=== PATIENT | male | born 1975 | race Caucasian/White ===

== ENCOUNTER → 2017-07-03 | Outpatient (REF) | payer OTHER ==
[2017-07-03 15:28] LABS: HEMATOCRIT 39.3 % (42.0-52.0); HEMOGLOBIN 12.9 g/dl (13.5-17.5); MEAN CORPUSCULAR HEMOGLOBIN 29.9 pg (27.0-33.0); MEAN CORPUSCULAR HGB CONC 32.8 g/dl (32.0-36.5); PLATELET COUNT, AUTOMATED 269 10^3/uL (150-450); RED BLOOD COUNT 4.32 10^6/uL (4.30-6.10); RED CELL DISTRIBUTION WIDTH 12.5 % (11.5-14.5); WHITE BLOOD COUNT 8.1 10^3/uL (4.0-10.0)
[2017-07-03 15:55] LABS: ESTIMATED AVERAGE GLUCOSE 103 MG/DL (60-110); HEMOGLOBIN A1c 5.2 %
[2017-07-03 16:00] LABS: ALBUMIN 4.4 GM/DL (3.2-5.2); ALBUMIN/GLOBULIN RATIO 1.57 (1.00-1.93); ALKALINE PHOSPHATASE 55 U/L (45-117); ALT/SGPT 28 U/L (12-78); ANION GAP 6 MEQ/L (8-16); AST/SGOT 19 U/L (7-37); BILIRUBIN,TOTAL 0.2 MG/DL (0.2-1.0); BLOOD UREA NITROGEN 15 MG/DL (7-18); C REACTIVE PROTEIN QUANTITATIV < 0.30 MG/DL (0.00-0.30); CALCIUM LEVEL 8.7 MG/DL (8.5-10.1); CARBON DIOXIDE LEVEL 29 MEQ/L (21-32); CHLORIDE LEVEL 103 MEQ/L (98-107); CREATININE FOR GFR 0.81 MG/DL (0.70-1.30); GLOMERULAR FILTRATION RATE > 60.0 (>60); GLUCOSE, FASTING 87 MG/DL (70-100); POTASSIUM SERUM 4.1 MEQ/L (3.5-5.1); PROSTATIC SPECIFIC AG MONITOR 0.77 NG/ML (< 4.0); SODIUM LEVEL 138 MEQ/L (136-145); THYROID STIMULATING HORMONE 0.444 uIU/ML (0.358-3.740); TOTAL PROTEIN 7.2 GM/DL (6.4-8.2)
[2017-07-03 16:18] LABS: TESTOSTERONE 148 NG/DL (241-827)
== END ==
LOC: M LABDRAW1 11:25
DX: I10 Essential (primary) hypertension (principal); E03.9 Hypothyroidism, unspecified
CPT/HCPCS: 84403

== ENCOUNTER → 2017-12-14 | Outpatient (CLI) | payer OTHER | LOC: M PLARAD 07:31 | DX: M51.06 Intervertebral disc disorders with myelopathy, lumbar region (principal) | CPT/HCPCS: 72148 ==

== ENCOUNTER → 2018-08-01 | Outpatient (CLI) | payer OTHER ==
[~2018-08-01] MED LIST: DICL50TAB PO; DULO30CA9 PO; HYDR-2807 PO; HYDR-3716 PO; LISI10TA4 PO; LISI20TA PO; OMEP20CA3 PO; SIMV40TA2 PO
[2018-08-01 09:59] LABS: HEMATOCRIT 42.7 % (42.0-52.0); HEMOGLOBIN 13.9 g/dl (13.5-17.5); MEAN CORPUSCULAR HEMOGLOBIN 29.6 pg (27.0-33.0); MEAN CORPUSCULAR HGB CONC 32.6 g/dl (32.0-36.5); PLATELET COUNT, AUTOMATED 324 10^3/uL (150-450); RED BLOOD COUNT 4.69 10^6/uL (4.30-6.10); WHITE BLOOD COUNT 7.5 10^3/uL (4.0-10.0)
[2018-08-01 10:22] LABS: HEMOGLOBIN A1c 5.1 %
[2018-08-01 10:33] LABS: ALBUMIN 4.4 GM/DL (3.2-5.2); ALT/SGPT 22 U/L (12-78); BILIRUBIN,TOTAL 0.6 MG/DL (0.2-1.0); BLOOD UREA NITROGEN 8 MG/DL (7-18); CALCIUM LEVEL 9.4 MG/DL (8.5-10.1); CARBON DIOXIDE LEVEL 30 MEQ/L (21-32); CHLORIDE LEVEL 105 MEQ/L (98-107); CHOLESTEROL LEVEL 188 MG/DL (<200); CHOLESTEROL RISK RATIO 3.916 (<5); CREATININE FOR GFR 0.78 MG/DL (0.70-1.30); GLOMERULAR FILTRATION RATE > 60.0 (>60); GLUCOSE, FASTING 88 MG/DL (70-100); HDL CHOLESTEROL 48 MG/DL (>40); LDL CHOLESTEROL 119 MG/DL (<100); NON-HDL-C 140 MG/DL; POTASSIUM SERUM 4.1 MEQ/L (3.5-5.1); SODIUM LEVEL 141 MEQ/L (136-145); TOTAL PROTEIN 7.2 GM/DL (6.4-8.2); TRIGLYCERIDES LEVEL 107 MG/DL (<150)
[2018-08-01 10:34] LABS: TESTOSTERONE 435 NG/DL (241-827)
== END ==
LOC: M LAB 08:54
PROVIDERS: ATTEND Family Medicine
DX: I10 Essential (primary) hypertension (principal); R53.83 Other fatigue; E03.9 Hypothyroidism, unspecified

== ENCOUNTER → 2018-08-13 | Outpatient (REF) ==
--- NOTE | 2018-08-13 15:56 | REP ---
PARTIAL LUMBAR SPINE, THREE VIEWS: HISTORY: Degenerative disc disease. There is no acute fracture or subluxation. The L4-5 and L5-S1 intervertebral discs are decreased in height consistent with disc degeneration. Osteophytes are present in L4 and L5. IMPRESSION: Degenerative change as described above. Electronically Signed by Lennox De La Fuente MD 08/13/2018 03:59 P
== END ==
LOC: M SMT 14:23
PROVIDERS: ATTEND Internal Medicine
DX: M51.36 Other intervertebral disc degeneration, lumbar region (principal)

== ENCOUNTER 2019-03-19 09:07 | Emergency (ER) | payer OTHER ==
[~2019-03-19] VITALS: Ht 182.9 cm; Wt 92.1 kg
[2019-03-19 09:07] VITALS: BP 180/91
[~2019-03-19 09:07] MED LIST changes: -LISI20TA PO; +LISI20TA19 PO; +OMEP-172 PO; -OMEP20CA3 PO; -SIMV40TA2 PO; +SIMV40TA20 PO
[2019-03-19] MEDS ORDERED: METH5TA (09:13)
[2019-03-19] MEDS ORDERED: AMPHET/DEXTR (09:13)
[2019-03-19] MEDS ORDERED: BUPR1SUB35 (09:13)
[2019-03-19] MEDS ORDERED: NS 1,000 ML IV ONE (09:45)
[2019-03-19] MEDS ORDERED: KETOROLAC 30 MG/ML VIAL (J1885) IV ONE (09:45)
[2019-03-19] MEDS ORDERED: ONDANSETRON 4MG/2ML VIAL (J2405) IV ONE (09:45)
[2019-03-19 09:56] LABS: BASO % 0.2 % (0.0-1.0); EOS % 0.1 % (0.0-3.0); HEMATOCRIT 42.9 % (42.0-52.0); HEMOGLOBIN 13.8 g/dl (13.5-17.5); LYMPH # 0.7 10^3/uL (1.5-5.0); LYMPH % 3.9 % (24.0-44.0); MEAN CORPUSCULAR HGB CONC 32.2 g/dl (32.0-36.5); MEAN CORPUSCULAR VOLUME 90.1 fl (80.0-96.0); MONO # 1.1 10^3/uL (0.0-0.8); MONO % 5.8 % (0.0-5.0); NEUTROPHILS # 16.8 10^3/uL (1.5-8.5); NEUTROPHILS % 89.6 % (36.0-66.0); PLATELET COUNT, AUTOMATED 383 10^3/uL (150-450); RED BLOOD COUNT 4.76 10^6/uL (4.30-6.10); WHITE BLOOD COUNT 18.8 10^3/uL (4.0-10.0)
[2019-03-19 10:23] LABS: ALBUMIN 3.6 GM/DL (3.2-5.2); BILIRUBIN,DIRECT 0.2 MG/DL (0.0-0.2); BILIRUBIN,TOTAL 0.6 MG/DL (0.2-1.0); TOTAL PROTEIN 7.7 GM/DL (6.4-8.2)
--- NOTE | 2019-03-19 11:12 | REP ---
Clinical: Right upper quadrant pain. Technique: Real time olson scale ultrasound examination using curved array transducer. Findings: Liver and pancreas are normal and without focal hepatic or pancreatic lesion identified. Right kidney is normal in reniform shape without hydronephrosis and measures 10.4 x 5.6 x 5.8 cm. The gallbladder is distended and filled with sludge and non mobile gallstone at the neck of the gallbladder along with significant wall thickening to 11 ml and pericholecystic fluid. The common bile duct measures 5.6 mm diameter. Findings are consistent with acute cholecystitis by ultrasound and should be correlated clinically. Impression: 1. Findings suggesting acute cholecystitis. Electronically Signed by Rudy Jackson MD 03/19/2019 11:04 A
[2019-03-19] MEDS ORDERED: CIPR-249 PO (11:32)
[2019-03-19] MEDS ORDERED: ONDA4TAB6 PO ×2 (11:32→21:05)
[2019-03-19] MEDS ORDERED: FLAG500T PO (11:32)
[2019-03-19] MEDS ORDERED: KETO10TAB PO ×2 (11:32→21:05)
--- NOTE | 2019-03-19 13:28 | ECGEPIP ---
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
[2019-03-19] MEDS ORDERED: METH5TA PO (21:05)
[2019-03-19] MEDS ORDERED: BUPR1SUB5 SL (21:05)
[2019-03-19] MEDS ORDERED: ADDE20TA PO (21:05)
[2019-03-19] MEDS ORDERED: METR-265 PO (21:05)
[2019-03-19] MEDS ORDERED: VITMTA PO (21:05)
[2019-03-19] MEDS ORDERED: CIPR500T3 PO (21:05)
== END 2019-03-19 12:05 | disposition home or self-care (01) ==
LOC: M ED 09:07
DX: K80.00 Calculus of gallbladder with acute cholecystitis without obstruction (principal); R00.1 Bradycardia, unspecified; I10 Essential (primary) hypertension; E78.5 Hyperlipidemia, unspecified; K21.9 Gastro-esophageal reflux disease without esophagitis; F15.10 Other stimulant abuse, uncomplicated; F12.10 Cannabis abuse, uncomplicated; Z79.899 Other long term (current) drug therapy
CPT/HCPCS: 76705; 80047; 80076; 81001; 83690; 85025; 93005; 96374; 96375; 99284; J1885; J2405

== ENCOUNTER 2019-03-19 20:11 | Inpatient (IN) | payer OTHER ==
[~2019-03-19] VITALS: Ht 182.9 cm; Wt 93.0 kg
[~2019-03-19 20:11] MED LIST changes: +AMPHET/DEXTR; +BUPR1SUB35; +CIPR-249 PO; +FLAG500T PO; +KETO10TAB PO; +METH5TA; +ONDA4TAB6 PO
[2019-03-19] MEDS ORDERED: MORPHINE 4 MG/ML 1ML VIAL/SYRINGE (J2270) IV ONE (20:45)
[2019-03-19] MEDS ORDERED: NS 1,000 ML IV ONE ×2 (20:45)
[2019-03-19] MEDS ORDERED: METOCLOPRAMIDE INJ 10MG/2ML VIAL (J2765) IV ONE (20:45)
[2019-03-19] MEDS ORDERED: D5W/0.9% SODIUM CHLORIDE 1,000 ML IV SCH (20:53)
--- NOTE | 2019-03-19 20:57 | HPEPDOC ---
[facility] Medical History & Physical Date of Admission Mar 19, 2019 Date of Service: Mar 20, 2019 Primary Care Physician: Yong Saba Attending Physician: JOSUE ROMERO MD History and Physical TIME OF SERVICE: 9:20 PM CHIEF COMPLAINT: Abdominal pain HISTORY OF PRESENT ILLNESS: This is a 43-year-old male who presented to the hospital earlier on today with complaints of acute worsening of his abdominal pain. The pain is on the right side, 10/10 in severity, sharp & constant; it began around [place] time and is associated with bilious, nonbloody emesis, fevers, and chills. The initial workup was workup was remarkable for leukocytosis, which was attributed to acute cholecystitis; Dr. Sanchez was consulted. The patient was sent home with antibiotics, and instructed to follow-up with Dr. Sanchez outpatient basis, but he returned to the hospital this evening because he was unable to eat or take his medications without vomiting. REVIEW OF SYSTEMS: 12 point review of systems negative except as listed in HPI PAST MEDICAL/ SURGICAL HISTORY: Chronic lower back pain/status post back surgery Hypertension, used to be on lisinopril but hasn't followed up with his PCP recently Dyslipidemia. GERD Status post excision of pilondal cyst SOCIAL HISTORY: Denies smoking Has a history of polysubstance abuse FAMILY HISTORY: Hypertension Gallstones ALLERGIES: Please see below. HOME MEDICATIONS: Please see below. PHYSICAL EXAMINATION: VITAL SIGNS: Please see below. GEN: well-nourished / well developed/ visibly in pain INTEGUMENT: not flushed/ not jaundice / no ecchymosis on the abdomen HEENT: NCAT / lips acyanotic /mucus membranes moist and pink / sclera anicteric CVS: RRR/NMRG/ trace extremity edema LUNGS: lungs are clear to auscultation bilaterally on room air ABDOMEN: Contour flat / there are no masses or lesions / bowel sounds are hypoactive/ the abdomen is tympanic on percussion MSK/EXTREMITIES: range of motion intact in all 4 extremities / he is able to walk without assistance NEURO: CN 2-12 are grossly intact / speech is not dysarthric PSYCH: alert and oriented to person place and time/ able to understand and follow all commands LABORATORY DATA: See below. IMAGING: Ultrasound of the gallbladder " Impression: 1. Findings suggesting acute cholecystitis." MICROBIOLOGY: Please see below. ASSESSMENT: Mr. Galeas is a 43-year-old with a past history of hypertension, chronic back pain who will be admitted for management of acute cholecystitis. PLAN: 1. Acute cholecystitis The only SIRS criteria has is leukocytosis Alkaline phosphatase is elevated Lipase is within normal limits Report from ultrasound of the gallbladder was reviewed Plan: Admit to medical floor/nothing by mouth/IV fluids/continue IV Cipro and Flagyl/pink, controlled morphine/general surgery consult/monitor vitals and WBC count 2. Uncontrolled hypertension Plan: Amlodipine DVT PROPHYLAXIS: SCDs DISPOSITION: Likely home after more than 2 midnight's stay Vital Signs Vital Signs Date Time Temp Pulse Resp B/P (MAP) Pulse Ox O2 Delivery O2 Flow Rate FiO2 03/19/19 20:19 03/19/19 20:12 98.6 71 16 98 Room Air Laboratory Data CBC/BMP Laboratory Tests 03/19/19 20:56 Home Medications Scheduled Buprenorphine HCl/Naloxone HCl (Buprenorphin-Naloxon 8-2 mg Sl) 1 Each Tab.subl, 1 TAB SL TID HAS NOT TAKEN SINCE RECENT ILLNESS Ciprofloxacin HCl (Ciprofloxacin HCl) 500 Mg Tablet, 500 MG PO BID Dextroamphetamine/Amphetamine (Adderall 20 mg Tablet) 20 Mg Tablet, 20 MG PO BID HAS NOT TAKEN SINCE RECENT ILLNESS Methadone HCl (Methadone HCl) 5 Mg Tablet, 5 MG PO TID HAS NOT TAKEN SINCE RECENT ILLNESS Metronidazole (Metronidazole) 500 Mg Tablet, 500 MG PO Q8H Multivitamins (Thera M Plus Tablet) 1 Each Tablet, 1 TAB PO DAILY Scheduled PRN Ketorolac Tromethamine (Ketorolac Tromethamine) 10 Mg Tablet, 10 MG PO Q6H PRN for PAIN Ondansetron (Ondansetron Odt) 4 Mg Tab.rapdis, 4 MG PO Q6H PRN for NAUSEA Allergies Coded Allergies: No Known Allergies (Unverified , 04/14/14) A-FIB/CHADSVASC A-FIB History Current/History of A-Fib/PAF?: No Current PO Anticoag Therapy: No JOSUE ROMERO MD Mar 19, 2019 20:57
[2019-03-19] MEDS ORDERED: KETOROLAC 30 MG/ML VIAL (J1885) IV ONE (21:00)
[2019-03-19] MEDS ORDERED: MAALOX 30 ML SUSP *UDC PO PRN (21:00)
[2019-03-19] MEDS ORDERED: MOM 30ML SUSPENSION UDC PO PRN (21:00)
[2019-03-19 21:03] LABS: BASO % 0.2 % (0.0-1.0); EOS % 0.2 % (0.0-3.0); HEMATOCRIT 40.2 % (42.0-52.0); LYMPH # 0.7 10^3/uL (1.5-5.0); LYMPH % 2.9 % (24.0-44.0); MEAN CORPUSCULAR HGB CONC 32.3 g/dl (32.0-36.5); MEAN CORPUSCULAR VOLUME 89.5 fl (80.0-96.0); MONO # 1.9 10^3/uL (0.0-0.8); MONO % 7.5 % (0.0-5.0); NEUTROPHILS # 22.3 10^3/uL (1.5-8.5); NEUTROPHILS % 88.7 % (36.0-66.0); PLATELET COUNT, AUTOMATED 365 10^3/uL (150-450); RED BLOOD COUNT 4.49 10^6/uL (4.30-6.10); WHITE BLOOD COUNT 25.1 10^3/uL (4.0-10.0)
[2019-03-19] MEDS ORDERED: METH5TA PO (21:05)
[2019-03-19] MEDS ORDERED: ONDA4TAB6 PO (21:05)
[2019-03-19] MEDS ORDERED: BUPR1SUB5 SL (21:05)
[2019-03-19] MEDS ORDERED: CIPR500T3 PO (21:05)
[2019-03-19] MEDS ORDERED: VITMTA PO (21:05)
[2019-03-19] MEDS ORDERED: KETO10TAB PO (21:05)
[2019-03-19] MEDS ORDERED: METR-265 PO (21:05)
[2019-03-19] MEDS ORDERED: ADDE20TA PO (21:05)
[2019-03-19 21:30] LABS: ALBUMIN 3.5 GM/DL (3.2-5.2); ALT/SGPT 61 U/L (12-78); BILIRUBIN,DIRECT 0.3 MG/DL (0.0-0.2); BILIRUBIN,TOTAL 0.6 MG/DL (0.2-1.0); BLOOD UREA NITROGEN 13 MG/DL (7-18); CALCIUM LEVEL 9.1 MG/DL (8.5-10.1); CARBON DIOXIDE LEVEL 28 MEQ/L (21-32); CHLORIDE LEVEL 100 MEQ/L (98-107); CREATININE FOR GFR 0.68 MG/DL (0.70-1.30); GLOMERULAR FILTRATION RATE > 60.0 (>60); GLUCOSE, FASTING 122 MG/DL (70-100); LIPASE 53 U/L (73-393); POTASSIUM SERUM 4.1 MEQ/L (3.5-5.1); SODIUM LEVEL 137 MEQ/L (136-145); TOTAL PROTEIN 7.5 GM/DL (6.4-8.2)
[2019-03-19] MEDS: amLODIPine 5 MG TAB PO SCH (21:33)
[2019-03-19 22:00] VITALS: BP 205/109
[2019-03-19] MEDS ORDERED: SENNA 8.6 MG TAB (SENOKOT) PO PRN (22:00)
[2019-03-19 23:00] VITALS: BP 180/82
[2019-03-19] MEDS: RAMELTEON 8 MG TAB (ROZEREM) PO SCH (23:10)
[2019-03-19] MEDS: DOCUSATE SODIUM 100 MG CAP PO SCH (23:10)
[2019-03-19] MEDS: MORPHINE 2 MG/ML 1ML VIAL (J2270) IV PRN (23:11)
[2019-03-20] MEDS ORDERED: metroNIDAZOLE 750 MG in IV 1 EA IV SCH ×2
[2019-03-20] MEDS ORDERED: CIPROFLOXACIN 200 MG in IV 1 EA IV SCH ×4
[2019-03-20] MEDS: metroNIDAZOLE 750 MG in IV 1 EA IV SCH ×3 (02:08→19:30)
[2019-03-20] MEDS: MORPHINE 2 MG/ML 1ML VIAL (J2270) IV PRN ×5 (02:18→19:30)
[2019-03-20 06:00] VITALS: BP 177/88
[2019-03-20] MEDS: ACETAMINOPHEN TAB 650MG DOSE (2X325MG) PO PRN ×2 (06:13→21:16)
[2019-03-20 08:20] LABS: HEMATOCRIT 36.9 % (42.0-52.0); HEMOGLOBIN 12.5 g/dl (13.5-17.5); MEAN CORPUSCULAR HEMOGLOBIN 29.8 pg (27.0-33.0); MEAN CORPUSCULAR HGB CONC 33.9 g/dl (32.0-36.5); MEAN CORPUSCULAR VOLUME 87.9 fl (80.0-96.0); PLATELET COUNT, AUTOMATED 344 10^3/uL (150-450)
[2019-03-20 08:44] LABS: BLOOD UREA NITROGEN 9 MG/DL (7-18); CALCIUM LEVEL 8.8 MG/DL (8.5-10.1); CARBON DIOXIDE LEVEL 25 MEQ/L (21-32); CHLORIDE LEVEL 99 MEQ/L (98-107); CREATININE FOR GFR 0.54 MG/DL (0.70-1.30); GLOMERULAR FILTRATION RATE > 60.0 (>60); GLUCOSE, FASTING 138 MG/DL (70-100); POTASSIUM SERUM 3.8 MEQ/L (3.5-5.1); SODIUM LEVEL 136 MEQ/L (136-145)
[2019-03-20 08:58] LABS: WHITE BLOOD COUNT 31.6 10^3/uL (4.0-10.0)
[2019-03-20] MEDS: NS 1,000 ML IV SCH ×3 (09:23→21:38)
[2019-03-20] MEDS: lisinopriL 20 MG TAB PO SCH (09:24)
[2019-03-20] MEDS: amLODIPine 5 MG TAB PO SCH (09:24)
[2019-03-20] MEDS: DOCUSATE SODIUM 100 MG CAP PO SCH ×2 (09:24→21:16)
[2019-03-20 09:30] VITALS: BP 168/86
[2019-03-20] MEDS: PIPERACILLIN/TAZOBACTAM SOD 3.375 GM in D5W MINI-BAG PLUS 50 ML IV SCH ×3 (10:27→21:17)
[2019-03-20] MEDS: KETOROLAC 30 MG/ML VIAL (J1885) IV PRN ×2 (10:27→16:38)
[2019-03-20 12:21] LABS: HEMATOCRIT 40.6 % (42.0-52.0); HEMOGLOBIN 13.3 g/dl (13.5-17.5); MEAN CORPUSCULAR HEMOGLOBIN 29.2 pg (27.0-33.0); MEAN CORPUSCULAR HGB CONC 32.8 g/dl (32.0-36.5); PLATELET COUNT, AUTOMATED 361 10^3/uL (150-450); RED BLOOD COUNT 4.56 10^6/uL (4.30-6.10)
[2019-03-20 12:26] LABS: WHITE BLOOD COUNT 33.3 10^3/uL (4.0-10.0)
[2019-03-20 12:45] LABS: ALT/SGPT 47 U/L (12-78); BILIRUBIN,TOTAL 0.8 MG/DL (0.2-1.0); BLOOD UREA NITROGEN 9 MG/DL (7-18); CALCIUM LEVEL 9.1 MG/DL (8.5-10.1); CARBON DIOXIDE LEVEL 28 MEQ/L (21-32); CHLORIDE LEVEL 100 MEQ/L (98-107); CREATININE FOR GFR 0.64 MG/DL (0.70-1.30); GLOMERULAR FILTRATION RATE > 60.0 (>60); GLUCOSE, FASTING 131 MG/DL (70-100); POTASSIUM SERUM 3.8 MEQ/L (3.5-5.1); SODIUM LEVEL 136 MEQ/L (136-145); TOTAL PROTEIN 7.3 GM/DL (6.4-8.2)
--- NOTE | 2019-03-20 13:54 | IPNPDOC ---
Text Note Date of Service The patient was seen on 03/20/19. NOTE Subjective: Patient continues to complain on the right upper quadrant abdominal pain, 9 out of 10. Patient stated that his pain has not subsided. Objective: VITAL SIGNS: Please see below. GEN: In moderate distress HEENT: PERRLA, EOMI CVS: S1-S2 LUNGS: lungs are clear to auscultation bilaterally on room air ABDOMEN: Severe tenderness in the right upper quadrant, Maza sign positive, no rebound tenderness MSK/EXTREMITIES: No swelling no edema NEURO: CN 2-12 are grossly intact / speech is not dysarthric PSYCH: alert and oriented to person place and time/ able to understand and follow all commands Patient is a 43-year-old with a past history of hypertension, chronic back pain who was admitted with acute cholecystitis. Sepsis Secondary to acute cholecystitis Patient has a fever on the admission and leukocytosis Patient is in the high risk to develop acute cholangitis or gangrenous gallbladder Leukocytes count continues to rise despite of broad-spectrum antibiotics Patient will need urgent surgical intervention, Dr. Sanchez planned biliary drainage Nothing by mouth Pain management Aggressive IV fluid Hypertension Secondary to pain Continue amlodipine Hydralazine when necessary VS,Fishbone, I+O VS, Fishbone, I+O Laboratory Tests 03/19/19 20:56 03/20/19 08:07 03/20/19 12:09 Vital Signs Date Time Temp Pulse Resp B/P (MAP) Pulse Ox O2 Delivery O2 Flow Rate FiO2 03/20/19 09:35 16 03/20/19 09:30 98.6 168/86 (113) 03/20/19 09:24 68 03/20/19 06:42 Room Air 03/20/19 06:00 99 I&O- Last 24 Hours up to 6 AM 03/20/19 06:00 Intake Total 720 ml Output Total 450 ml Balance 270 ml JUSTINA RODRIGUEZ DO Mar 20, 2019 13:54
[2019-03-20] MEDS ORDERED: fentaNYL 100 MCG/2 ML INJECTION (J3010) As Ordered ONE (14:12)
[2019-03-20] MEDS ORDERED: diphenhydrAMINE INJ 50MG/ML VIAL (J1200) As Ordered ONE (14:12)
[2019-03-20] MEDS ORDERED: MIDAZOLAM INJ 2 MG/2 ML VIAL (J2250) As Ordered ONE (14:13)
[2019-03-20] MEDS ORDERED: LIDOCAINE 1% MDV 20ML VIAL As Ordered ONE (14:13)
[2019-03-20] MEDS ORDERED: ISOVUE-300 61% 50ML VIAL (Q9967) As Ordered ONE (14:13)
[2019-03-20 15:00] VITALS: BP 160/98
[2019-03-20 15:30] VITALS: BP 162/94
--- NOTE | 2019-03-20 15:46 | POST-OPPD ---
Postoperative Procedure Note Date Of Procedure: Mar 20, 2019 Time Of Procedure: 14:41 PREOPERATIVE DIAGNOSIS: perforated gallbladder POSTOPERATIVE DIAGNOSIS: same FINDINGS: same PROCEDURE: 10 F cholecystomy placed. needs daily flushing with 10 ml sterile saline. drain should NOT be removed before 6 weeks unless at time of surgery. SURGEON: josephine ANESTHESIA: local SPECIMENS: sent ESTIMATED BLOOD LOSS: < 5 ml COMPLICATIONS: none POSTOPERATIVE CONDITION: stable RAMILA LLANOS MD Mar 20, 2019 15:45
[2019-03-20] MEDS: RAMELTEON 8 MG TAB (ROZEREM) PO SCH (21:16)
[2019-03-20 22:00] VITALS: BP 141/78
[2019-03-21] MEDS: metroNIDAZOLE 750 MG in IV 1 EA IV SCH ×3 (02:20→17:01)
[2019-03-21] MEDS: PIPERACILLIN/TAZOBACTAM SOD 3.375 GM in D5W MINI-BAG PLUS 50 ML IV SCH ×4 (04:16→22:47)
[2019-03-21 05:41] LABS: HEMOGLOBIN 12.1 g/dl (13.5-17.5); MEAN CORPUSCULAR HEMOGLOBIN 29.1 pg (27.0-33.0); MEAN CORPUSCULAR HGB CONC 31.8 g/dl (32.0-36.5); MEAN CORPUSCULAR VOLUME 91.3 fl (80.0-96.0); PLATELET COUNT, AUTOMATED 330 10^3/uL (150-450); RED BLOOD COUNT 4.16 10^6/uL (4.30-6.10); WHITE BLOOD COUNT 19.4 10^3/uL (4.0-10.0)
[2019-03-21 06:00] VITALS: BP 140/77
[2019-03-21] MEDS: NS 1,000 ML IV SCH ×3 (06:07→22:26)
[2019-03-21 06:16] LABS: ALBUMIN 2.6 GM/DL (3.2-5.2); ALT/SGPT 50 U/L (12-78); BILIRUBIN,TOTAL 0.6 MG/DL (0.2-1.0); BLOOD UREA NITROGEN 18 MG/DL (7-18); CALCIUM LEVEL 8.6 MG/DL (8.5-10.1); CARBON DIOXIDE LEVEL 29 MEQ/L (21-32); CHLORIDE LEVEL 103 MEQ/L (98-107); CREATININE FOR GFR 0.74 MG/DL (0.70-1.30); GLOMERULAR FILTRATION RATE > 60.0 (>60); GLUCOSE, FASTING 98 MG/DL (70-100); POTASSIUM SERUM 3.6 MEQ/L (3.5-5.1); SODIUM LEVEL 139 MEQ/L (136-145); TOTAL PROTEIN 6.9 GM/DL (6.4-8.2)
[2019-03-21] MEDS: amLODIPine 5 MG TAB PO SCH (09:36)
[2019-03-21] MEDS: lisinopriL 20 MG TAB PO SCH (09:36)
[2019-03-21] MEDS: DOCUSATE SODIUM 100 MG CAP PO SCH ×2 (09:36→22:47)
--- NOTE | 2019-03-21 09:54 | REP ---
IR cholecystostomy placement using CT guidance. Clinical information: Right upper quadrant pain and tenderness. Perforated gallbladder. Presently not a surgical candidate, therefore referred by surgery. Physician: Dr. Nick. Procedure: The patient was advised of the benefits, risks and alternatives of the procedure and informed consent was obtained. The time-out was performed with verification of the patient's name, MRN, site of procedure and type of procedure to be performed. Moderate sedation was not performed. The physician spent 45 minutes of continuous face to face time with the patient. The patient was placed in the supine position on the CT gantry and a scan was performed through the region of interest. This demonstrates a perforated gallbladder with extensive pericholecystic fluid. After marking the overlying skin, the patient was prepped and draped in the usual sterile fashion. The soft tissues overlying the gallbladder puncture site were anesthetized with lidocaine. Through this anesthetized region, an 18 gauge Chiba needle was advanced into the gallbladder under intermittent CT guidance. Brown fluid was aspirated. An Amplatz wire was advanced into the fluid collection over which a 10-Polish APDL was advanced. A fluid specimen was aspirated. Subsequent localized CT scanning was performed to confirm catheter location. The catheter was then locked, sutured in position and placed to gravity drainage. The specimen was labeled with the patient's name, medical record number and sent to the lab for further analysis. The patient tolerated the procedure well and was returned to PRU in stable condition. EBL: Less than 5 ml. Complications: None. Conclusion: 1. CT demonstrates perforated gallbladder. 2. Successful CT guided cholecystostomy catheter placement. Catheter requires flushing with 10 ml sterile saline every day. Catheter may be removed at time of surgery otherwise patient to follow up in IR in 6 weeks for ongoing drain management. Thank you this referral. Electronically Signed by Barbara Nick MD 03/21/2019 09:52 A
[2019-03-21] MEDS: KETOROLAC 30 MG/ML VIAL (J1885) IV PRN ×2 (11:00→18:58)
[2019-03-21] MEDS: MORPHINE 2 MG/ML 1ML VIAL (J2270) IV PRN ×3 (11:00→18:58)
--- NOTE | 2019-03-21 13:02 | CR ---
DATE OF CONSULTATION: 03/20/2019 CHIEF COMPLAINT: Abdominal pain. HISTORY OF PRESENT ILLNESS: The patient is a 43-year-old male who was in the emergency room earlier in the day with what appeared to be acute cholecystitis. I was called from home. After a discussion his pains were controlled at the time and the plan was to discharge him home with antibiotics and have him followup in the office to have this scheduled as an outpatient. He had persistent nausea and vomiting later in the day and returned back to the hospital. His white count was higher now and he was admitted to the medicine service for pain control. He has had this pain for over a week now. The pain has been getting progressively worse. He started to have some nausea and vomiting. He is having fevers now, but he did not have those prior to coming to the hospital. He has never had any trauma to the abdomen. No prior surgeries to the upper abdomen. No known history of gallbladder disease in the past. PAST MEDICAL HISTORY: Chronic lower back pain, hypertension, dyslipidemia, gastroesophageal reflux disease. PAST SURGICAL HISTORY: Pilonidal cystectomy, back surgery. SOCIAL HISTORY: Denies smoking, has a history of polysubstance abuse in the past. FAMILY HISTORY: Noncontributory. ALLERGIES: None. HOME MEDICATIONS: Please see med record. REVIEW OF SYSTEMS: Pertinent positives and negatives as stated in the history of present illness (HPI). PHYSICAL EXAMINATION:: General: Alert and oriented times three. No acute distress. Vital Signs: Temperature 100.6, pulse 69, respirations 18, blood pressure 177/88, pulse ox 99% in room air. HEENT: Pupils equally round and react to light and accommodation. Heart: S1, S2, regular rate and rhythm. Lungs: Clear to auscultation bilaterally. Abdomen: Soft. Tender to palpation in the right upper quadrant. Localized guarding and rigidity. Extremities: No clubbing, cyanosis or edema. LABORATORY DATA: White count 25.1, hemoglobin 13, platelets 365, potassium 4.1, lactic acid 1.3, total bilirubin 0.6, alkaline phosphatase 135, lipase 53. IMAGING STUDIES: Gallbladder ultrasound showed a distended gallbladder with sludge and a non-mobile gallstone in the neck of the gallbladder with wall thickening to 11 mm and pericholecystic fluid suggestive for acute cholecystitis. ASSESSMENT/PLAN: The patient, again, is a 43-year-old male with acute cholecystitis likely turning into a gangrenous cholecystitis at this point. His white count has gone up from 18 to now 31.6. I have discussed his case with interventional radiology and they are planning to do a cholecystostomy drain for him this afternoon. Surgery at this point would be very difficult with all the surrounding inflammation and have very high risk for complications. He currently has IV fluids running at 60 an hour of D5 0.9, which is inappropriate. I will cancel those and start him on normal saline at 150 an hour and also will switch his antibiotics around and put him on some Zosyn and Flagyl for now. Once the drain is in place and we have some culture results, we can change his antibiotics around them. The plan at this point is to get his drain placed. If it is unable to be placed, I will give him the option of either surgery this evening versus transfer to a place that can put in the drain, but I do not foresee that becoming an issue at this point. Once he is stabilized and tolerating diet, will plan to discharge him home, likely with the drain for a week or two. Once the drain has cleared up, will remove it and plan for likely outpatient cholecystectomy in about 4-6 weeks.
[2019-03-21 14:00] VITALS: BP 141/80
--- NOTE | 2019-03-21 16:53 | IPNPDOC ---
Text Note Date of Service The patient was seen on 03/21/19. NOTE Subjective: Patient stated that he feels much better today, pain subsided sign ificantly after biliary drainage was placed Objective: General: Alert and oriented times three. No acute distress. Vital Signs: Temperature 100.6, pulse 69, respirations 18, blood pressure 177/88, pulse ox 99% in room air. HEENT: Pupils equally round and react to light and accommodation. Heart: S1, S2, regular rate and rhythm. Lungs: Clear to auscultation bilaterally. Abdomen: Soft, mild tender to palpation in the right upper quadrant. Extremities: No clubbing, cyanosis or edema. Patient is a 43-year-old with a past history of hypertension, chronic back pain who was admitted with acute cholecystitis. Sepsis Resolved Secondary to acute cholecystitis Patient had a fever on the admission and leukocytosis Biliary drainage was placed yesterday Dr Sanchez rec to discharge him home after stabilization, likely with the drain for a week or two, outpatient cholecystectomy in about 4-6 weeks. Hypertension Secondary to pain Continue amlodipine Hydralazine when necessary VS,Fishbone, I+O VS, Fishbone, I+O Laboratory Tests 03/21/19 05:16 Vital Signs Date Time Temp Pulse Resp B/P (MAP) Pulse Ox O2 Delivery O2 Flow Rate FiO2 03/21/19 15:16 16 03/21/19 14:00 99.0 74 141/80 (100) 94 Room Air I&O- Last 24 Hours up to 6 AM 03/21/19 06:00 Intake Total 1780 ml Output Total 1950 ml Balance -170 ml JUSTINA RODRIGUEZ DO Mar 21, 2019 16:53
--- NOTE | 2019-03-21 17:14 | IPNPDOC ---
Subjective General Date/Time Seen Seen and examined on 03/21/2019 at 0700. Subject Chief Complaint/History Taiwo was seen and examined this morning by general surgery while lying upright in bed. Overall, he feels significantly improved since having the cholecystostomy tube placed yesterday afternoon. He continues to have right upper quadrant abdominal, right flank, and bilateral lower quadrant abdominal discomfort, but this is significantly reduced in severity from yesterday. He denies any overnight events and says he was able to get some sleep. He is passing gas and burping, but has yet to have a bowel movement since admission. He continues to be NPO. He is able to ambulate to and from the bathroom to urinate, and states he's had 5 voids since the tube was placed yesterday. He reports accompanying productive cough with clear sputum. He denies fever, nausea, or vomiting. Current Medications Current Medications Current Medications Medications (Trade) Dose Ordered Sig/Ena Route PRN Reason Start Time Stop Time Status Last Admin Dose Admin Acetaminophen (Tylenol Tab) 650 mg Q4H PRN PO PAIN OR FEVER 03/19/19 21:00 03/20/19 21:16 Al Hydrox/Mg Hydrox/Simethicone (Mylanta) 30 ml DAILY PRN PO DYSPEPSIA 03/19/19 21:00 Amlodipine Besylate (Norvasc) 5 mg DAILY PO 03/19/19 21:30 03/21/19 09:36 Ciprofloxacin 200 mg/IV Miscellaneous Supplies 100 ml @ 100 mls/hr Q12H IV 03/20/19 00:00 03/19/19 22:53 DC Ciprofloxacin 200 mg/IV Miscellaneous Supplies 100 ml @ 100 mls/hr Q12H IV 03/20/19 00:00 03/20/19 09:43 DC 03/20/19 00:07 Dextrose/Sodium Chloride 1,000 ml @ 60 mls/hr [id number] IV 03/19/19 20:53 03/20/19 08:03 DC 03/19/19 21:53 Docusate Sodium (Colace) 100 mg BID PO 03/19/19 21:00 03/21/19 09:36 Home Med (Med Rec Complete!) ASDIRECTED XX 03/19/19 21:15 03/19/19 21:07 DC Ketorolac Tromethamine (ToRADol) 30 mg Q6H PRN IV PAIN 03/20/19 08:15 03/25/19 08:14 03/21/19 11:00 Lisinopril (Prinivil) 20 mg DAILY PO 03/20/19 09:00 03/21/19 09:36 Magnesium Hydroxide (Milk Of Magnesia) 30 ml DAILY PRN PO CONSTIPATION 03/19/19 21:00 03/20/19 21:32 Metronidazole 750 mg/IV Miscellaneous Supplies 150 ml @ 150 mls/hr Q8H IV 03/20/19 00:00 03/19/19 22:53 DC Metronidazole 750 mg/IV Miscellaneous Supplies 150 ml @ 150 mls/hr Q8H IV 03/20/19 02:00 03/21/19 10:59 Morphine Sulfate (Morphine Sulfate Inj) 1 mg Q2H PRN IV MODERATE PAIN (PS 5-7) 03/19/19 22:00 03/21/19 15:06 Piperacillin Sod/ Tazobactam Sod 3.375 gm/Dextrose 50 ml @ 50 mls/hr Q6H IV 03/20/19 10:00 03/21/19 15:06 Ramelteon (Rozerem) 8 mg QHS PO 03/19/19 22:00 03/20/19 21:16 Senna (Senokot) 2 tab BIDP PRN PO CONSTIPATION 03/19/19 22:00 Sodium Chloride 1,000 ml @ 100 mls/hr Q10H IV 03/20/19 08:15 03/21/19 06:07 Allergies Coded Allergies: No Known Allergies (Unverified , 04/14/14) Objective Physical Examination Examination VITAL SIGNS (at time of exam): Temperature 98.3, heart rate 74, respiratory rate 18, blood pressure 140/77, O2 saturation of 97% on room air GENERAL APPEARANCE: Patient is awake, alert and oriented 3. He is pleasant and appropriately interactive. HEENT: Normocephalic, atraumatic. Anicteric sclera. Pupils are equal, round and reactive to light and accommodation. No conjunctival pallor. Mucous membranes are pink and mildly dry. There is no pharyngeal erythema or exudate. LUNGS: Clear to auscultation bilaterally, anteriorly and posteriorly. No wheezes, rhonchi, or crackles appreciated. Symmetric chest expansion with no accessory muscle use on respiration. Breathing on room air and speaking in full sentences. HEART: Normal S1, S2 with regular rate and rhythm. No murmurs, rubs, or clicks appreciated. Adequate capillary refill. 2+ radial and posterior tibial pulses bilaterally. ABDOMEN: Soft and nondistended. Moderate tenderness to palpation in right upper quadrant, with mild tenderness in right and left lower quadrants. No appreciable guarding, rigidity or rebound tenderness. Normoactive bowel sounds present in all 4 quadrants. No palpable masses appreciated. Tube is present in the right upper quadrant that has drained approximately 40 mL of sanguinous fluid. Dressings around tube are dry. There is no erythema, swelling, discharge, or induration around the tube. EXTREMITIES: No lower extremity edema, clubbing, or cyanosis present. Vital Signs Vital Signs Date Time Temp Pulse Resp B/P (MAP) Pulse Ox O2 Delivery O2 Flow Rate FiO2 03/21/19 15:16 16 03/21/19 14:00 99.0 74 141/80 (100) 94 Room Air I&Os I&O- Last 24 Hours up to 6 AM 03/21/19 06:00 Intake Total 1780 ml Output Total 1950 ml Balance -170 ml Laboratory Data Labs 24H Laboratory Tests 2 03/21/19 05:16: Nucleated Red Blood Cells % (auto) 0.0, Anion Gap 7L, Glomerular Filtration Rate > 60.0, Calcium Level 8.6, Total Bilirubin 0.6, Aspartate Amino Transf (AST/SGOT) 21, Alanine Aminotransferase (ALT/SGPT) 50, Alkaline Phosphatase 123H, Total Protein 6.9, Albumin 2.6L, Albumin/Globulin Ratio 0.60L 03/21/19 11:30: Bedside Glucose (Misc Panel) 112H CBC/BMP Laboratory Tests 03/21/19 05:16 Microbiology Microbiology 03/20/19 Gram Stain - Final, Resulted 03/20/19 Body Fluid Culture, Resulted Pending 03/20/19 Anaerobic Culture, Received Pending 03/19/19 Blood Culture - Preliminary, Resulted No growth after 24 hours . All specim... 03/19/19 Blood Culture - Preliminary, Resulted No growth after 24 hours . All specim... Impression This is a 43-year-old male who presented to the emergency department on the evening of 03/19/2019 and was subsequently diagnosed with acute cholecystitis. It appears to have developed into gangrenous cholecystitis at this time, as evidenced by the sanguinous discharge draining from cholecystostomy tube. The tube was placed yesterday afternoon (03/20) by interventional radiology with no reported complications. Patient is currently afebrile with a WBC that has decreased to 19.4 this morning from 33.3 yesterday afternoon. Patient is on day 2 of Zosyn and Flagyl with both aerobic and anaerobic cultures of gallbladder fluid pending. Gram stain showed no cells or organisms. Two initial blood cultures on admission had no growth after 24 hours. -Continue with Zosyn and Flagyl and reassess antibiotic coverage if culture results warrant. -Continue with IV fluids at 150 mL/hr -Continue with ketorolac and morphine for pain -Due to patient's improvement, NPO was discontinued and regular diet started -Orders placed for patient to ambulate in hallways, out of bed with meals, and shower DISPOSITION: If patient's WBC and overall status continue to improve, and he tolerates a regular diet without issue, plan will be to discharge him home with the drain in place. Once the drain has cleared up, it will be removed and likely outpatient cholecystectomy will be scheduled in about 4-6 weeks. Plan / VTE VTE Prophylaxis Ordered?: Yes (teds and sequentials) BERENICE FRANCIS D.O. Mar 21, 2019 17:14
[2019-03-21 22:00] VITALS: BP 118/64
[2019-03-21] MEDS: RAMELTEON 8 MG TAB (ROZEREM) PO SCH (22:47)
[2019-03-22] MEDS: metroNIDAZOLE 750 MG in IV 1 EA IV SCH ×3 (02:24→18:50)
[2019-03-22] MEDS: PIPERACILLIN/TAZOBACTAM SOD 3.375 GM in D5W MINI-BAG PLUS 50 ML IV SCH ×4 (05:11→20:46)
[2019-03-22 05:47] LABS: HEMATOCRIT 31.7 % (42.0-52.0); HEMOGLOBIN 10.2 g/dl (13.5-17.5); MEAN CORPUSCULAR HEMOGLOBIN 29.3 pg (27.0-33.0); MEAN CORPUSCULAR HGB CONC 32.2 g/dl (32.0-36.5); MEAN CORPUSCULAR VOLUME 91.1 fl (80.0-96.0); PLATELET COUNT, AUTOMATED 314 10^3/uL (150-450); RED BLOOD COUNT 3.48 10^6/uL (4.30-6.10); WHITE BLOOD COUNT 10.2 10^3/uL (4.0-10.0)
[2019-03-22 06:00] VITALS: BP 167/90
[2019-03-22 06:20] LABS: ALBUMIN 2.4 GM/DL (3.2-5.2); ALT/SGPT 33 U/L (12-78); BILIRUBIN,TOTAL 0.2 MG/DL (0.2-1.0); BLOOD UREA NITROGEN 18 MG/DL (7-18); CALCIUM LEVEL 8.1 MG/DL (8.5-10.1); CARBON DIOXIDE LEVEL 26 MEQ/L (21-32); CHLORIDE LEVEL 107 MEQ/L (98-107); CREATININE FOR GFR 0.64 MG/DL (0.70-1.30); GLOMERULAR FILTRATION RATE > 60.0 (>60); GLUCOSE, FASTING 89 MG/DL (70-100); POTASSIUM SERUM 3.3 MEQ/L (3.5-5.1); SODIUM LEVEL 140 MEQ/L (136-145); TOTAL PROTEIN 6.1 GM/DL (6.4-8.2)
[2019-03-22] MEDS: lisinopriL 20 MG TAB PO SCH ×2 (09:17→16:30)
[2019-03-22] MEDS: DOCUSATE SODIUM 100 MG CAP PO SCH ×2 (09:17→20:46)
[2019-03-22 09:18] VITALS: BP 167/90
[2019-03-22] MEDS: amLODIPine 5 MG TAB PO SCH (09:18)
[2019-03-22] MEDS: POTASSIUM CHLORIDE 10 MEQ SR TABLET PO SCH (09:18)
[2019-03-22] MEDS: KETOROLAC 30 MG/ML VIAL (J1885) IV PRN (13:04)
[2019-03-22 14:00] VITALS: BP 149/93
--- NOTE | 2019-03-22 16:23 | IPNPDOC ---
Text Note Date of Service The patient was seen on 03/22/19. NOTE Subjective: Patient has mild abdominal pain with mild abdominal distention, pain subsided significantly after biliary drainage was placed. Patient denies fever, chills, nausea, vomiting, diarrhea or dysuria Objective: General: Alert and oriented times three. No acute distress. Vital Signs: Temperature 100.6, pulse 69, respirations 18, blood pressure 177/88, pulse ox 99% in room air. HEENT: Pupils equally round and react to light and accommodation. Heart: S1, S2, regular rate and rhythm. Lungs: Clear to auscultation bilaterally. Abdomen: Soft, mild tender to palpation in the right upper quadrant. Extremities: No clubbing, cyanosis or edema. Patient is a 43-year-old with a past history of hypertension, chronic back pain who was admitted with acute cholecystitis. Sepsis Resolved Secondary to acute cholecystitis Patient had a fever on the admission and leukocytosis Biliary drainage was placed yesterday Dr Sanchez rec to discharge him home after stabilization, likely with the drain for a week or two, outpatient cholecystectomy in about 4-6 weeks. Continue antibiotic therapy Continue pain management Hypertension Secondary to pain, most likely patient had untreated hypertension Continue amlodipine I added lisinopril 5 mg Hydralazine when necessary VS,Fishbone, I+O VS, Fishbone, I+O Laboratory Tests 03/22/19 05:16 Vital Signs Date Time Temp Pulse Resp B/P (MAP) Pulse Ox O2 Delivery O2 Flow Rate FiO2 03/22/19 14:00 99.0 75 17 149/93 (111) 100 Room Air I&O- Last 24 Hours up to 6 AM 03/22/19 06:00 Intake Total 2550 ml Output Total 300 ml Balance 2250 ml JUSTINA RODRIGUEZ DO Mar 22, 2019 16:23
[2019-03-22] MEDS: RAMELTEON 8 MG TAB (ROZEREM) PO SCH (20:46)
[2019-03-22 22:00] VITALS: BP 138/82
[2019-03-23] MEDS: metroNIDAZOLE 750 MG in IV 1 EA IV SCH (02:08)
[2019-03-23] MEDS: PIPERACILLIN/TAZOBACTAM SOD 3.375 GM in D5W MINI-BAG PLUS 50 ML IV SCH (04:48)
[2019-03-23 06:00] VITALS: BP 159/89
[2019-03-23 06:00] LABS: HEMATOCRIT 35.8 % (42.0-52.0); HEMOGLOBIN 11.2 g/dl (13.5-17.5); MEAN CORPUSCULAR HEMOGLOBIN 28.5 pg (27.0-33.0); MEAN CORPUSCULAR HGB CONC 31.3 g/dl (32.0-36.5); MEAN CORPUSCULAR VOLUME 91.1 fl (80.0-96.0); PLATELET COUNT, AUTOMATED 388 10^3/uL (150-450); RED BLOOD COUNT 3.93 10^6/uL (4.30-6.10); WHITE BLOOD COUNT 8.4 10^3/uL (4.0-10.0)
[2019-03-23 06:23] LABS: ALBUMIN 2.7 GM/DL (3.2-5.2); ALT/SGPT 30 U/L (12-78); BILIRUBIN,TOTAL 0.3 MG/DL (0.2-1.0); BLOOD UREA NITROGEN 9 MG/DL (7-18); CALCIUM LEVEL 8.6 MG/DL (8.5-10.1); CARBON DIOXIDE LEVEL 27 MEQ/L (21-32); CHLORIDE LEVEL 108 MEQ/L (98-107); CREATININE FOR GFR 0.66 MG/DL (0.70-1.30); GLOMERULAR FILTRATION RATE > 60.0 (>60); GLUCOSE, FASTING 85 MG/DL (70-100); POTASSIUM SERUM 3.8 MEQ/L (3.5-5.1); SODIUM LEVEL 141 MEQ/L (136-145); TOTAL PROTEIN 6.4 GM/DL (6.4-8.2)
[2019-03-23] MEDS: lisinopriL 20 MG TAB PO SCH (08:36)
[2019-03-23] MEDS: DOCUSATE SODIUM 100 MG CAP PO SCH (08:36)
[2019-03-23] MEDS: amLODIPine 5 MG TAB PO SCH (08:36)
[2019-03-23] MEDS: POTASSIUM CHLORIDE 10 MEQ SR TABLET PO SCH (08:36)
[2019-03-23] MEDS ORDERED: SENN18TA PO (10:20)
[2019-03-23] MEDS ORDERED: DOCU100C16 PO (10:20)
[2019-03-23] MEDS ORDERED: AUGM875T28 PO (10:20)
[2019-03-23] MEDS ORDERED: LISI-538 PO (10:20)
[2019-03-23] MEDS ORDERED: ACET1TAB55 PO (10:20)
[2019-03-23] MEDS ORDERED: RAME8TAB2 PO (10:20)
[2019-03-23] MEDS ORDERED: AMLO5TAB6 PO (10:20)
--- NOTE | 2019-03-23 12:06 | DS.PDOC ---
Discharge Summary General Date of Admission Mar 19, 2019 at 20:53 Date of Discharge 03/23/19 Discharge Summary PROCEDURES PERFORMED DURING STAY: [None]. ADMITTING DIAGNOSES: Acute cholecystitis Uncontrolled hypertension DISCHARGE DIAGNOSES: Acute cholecystitis Uncontrolled hypertension COMPLICATIONS/CHIEF COMPLAINT: Acute Cholecystitis. HISTORY OF PRESENT ILLNESS:The patient is a 43-year-old male who was in the emergency room earlier in the day with what appeared to be acute cholecystitis. a discussion his pains were controlled at the time and the plan was to discharge him home with antibiotics and have him followup in the office to have this scheduled as an outpatient. He had persistent nausea and vomiting later in the day and returned back to the hospital. His white count was higher now and he was admitted to the medicine service for pain control. He has had this pain for over a week now. The pain has been getting progressively worse. He started to have some nausea and vomiting. He is having fevers now, but he did not have those prior to coming to the hospital. He has never had any trauma to the abdomen. No prior surgeries to the upper abdomen. No known history of gallbladder disease in the past. HOSPITAL COURSE: During hospital stay the following issue addressed Sepsis Resolved on the antibiotic therapy and biliary drainage Secondary to acute cholecystitis Patient had a fever on the admission and leukocytosis Biliary drainage was placed, after biliary drainage sepsis resolved Dr Sanchez rec to discharge him home after stabilization, likely with the drain for a week or two, outpatient cholecystectomy in about 4-6 weeks. Hypertension Secondary to pain, most likely patient had untreated hypertension Continue amlodipine Increase the dose of lisinopril 20 mg Hydralazine when necessary DISCHARGE MEDICATIONS: Please see below. ALLERGIES: Please see below. PHYSICAL EXAMINATION ON DISCHARGE: VITAL SIGNS: Please see below. General: Alert and oriented times three. No acute distress. Vital Signs: Temperature 100.6, pulse 69, respirations 18, blood pressure 177/88, pulse ox 99% in room air. HEENT: Pupils equally round and react to light and accommodation. Heart: S1, S2, regular rate and rhythm. Lungs: Clear to auscultation bilaterally. Abdomen: Soft, mild tender to palpation in the right upper quadrant. Extremities: No clubbing, cyanosis or edema. LABORATORY DATA: Please see below. IMAGING: [facility] NAME: SANDY GAY DATE OF : 1975 AGE: 43 SEX: M REPORT #: [id number] ROOM: [facility] TECHNOLOGIST: ZAINA DOCTOR: RAMILA LLANOS MD Ordered for Date&Time: 03/20/19 1358 cc: [~ rep ct ivnm] Service Date&Time: 03/20/19 6224 This report is in Signed status. If this report is in a DRAFT status it has not yet been reviewed by the radiologist for accuracy. Thank you for having your radiology procedures performed at [facility] RADIOLOGY REPORT Date&Time printed: [~ rep prt dt last] [~ rep prt tm last] Page 2 of 2 [place] [address] RADIOLOGY REPORT This report is in Signed status. If this report is in a DRAFT status it has not yet been reviewed by the radiologist for accuracy. Thank you for having your radiology procedures performed at [facility] RADIOLOGY REPORT Date&Time printed: [~ rep prt dt last] [~ rep prt tm last] Page 1 of 2 IR cholecystostomy placement using CT guidance. Clinical information: Right upper quadrant pain and tenderness. Perforated gallbladder. Presently not a surgical candidate, therefore referred by surgery. Physician: Dr. Llanos. Procedure: The patient was advised of the benefits, risks and alternatives of the procedure and informed consent was obtained. The time-out was performed with verification of the patient's name, MRN, site of procedure and type of procedure to be performed. Moderate sedation was not performed. The physician spent 45 minutes of continuous face to face time with the patient. The patient was placed in the supine position on the CT gantry and a scan was performed through the region of interest. This demonstrates a perforated gallbladder with extensive pericholecystic fluid. After marking the overlying skin, the patient was prepped and draped in the usual sterile fashion. The soft tissues overlying the gallbladder puncture site were anesthetized with lidocaine. Through this anesthetized region, an 18 gauge Chiba needle was advanced into the gallbladder under intermittent CT guidance. Brown fluid was aspirated. An Amplatz wire was advanced into the fluid collection over which a 10-[place] APDL was advanced. A fluid specimen was aspirated. Subsequent localized CT scanning was performed to confirm catheter location. The catheter was then locked, sutured in position and placed to gravity drainage. The specimen was labeled with the patient's name, medical record number and sent to the lab for further analysis. The patient tolerated the procedure well and was returned to PRU in stable condition. EBL: Less than 5 ml. Complications: None. Conclusion: 1. CT demonstrates perforated gallbladder. 2. Successful CT guided cholecystostomy catheter placement. Catheter requires flushing with 10 ml sterile saline every day. Catheter may be removed at time of surgery otherwise patient to follow up in IR in 6 weeks for ongoing drain management. Thank you this referral. Electronically Signed by Ramila Llanos MD 03/21/2019 09:52 A DD: RAMILA LLANOS MD 03/21/19 0949 DT: Sumanth 03/21/1954 DS: DG [birth year] [~ rep ct labl] PROGNOSIS: Favorable ACTIVITY: [As tolerated]. DIET: Cardiac DISCHARGE PLAN: Home DISPOSITION: 01 Home, Self-Care. DISCHARGE INSTRUCTIONS: Follow surgical instructions for biliary drainage ITEMS TO FOLLOWUP ON ON OUTPATIENT: Dr. Sanchez on the next week DISCHARGE CONDITION: Stable TIME SPENT ON DISCHARGE: Greater than 20 minutes. Vital Signs/I&Os Vital Signs Date Time Temp Pulse Resp B/P (MAP) Pulse Ox O2 Delivery O2 Flow Rate FiO2 03/23/19 06:00 98.7 63 17 159/89 (112) 99 Room Air I&O- Last 24 Hours up to 6 AM 03/23/19 06:00 Intake Total 2840 ml Output Total 4500 ml Balance -1660 ml Laboratory Data Labs 24H Laboratory Tests 2 03/23/19 05:18: Nucleated Red Blood Cells % (auto) 0.0, Anion Gap 6L, Glomerular Filtration Rate > 60.0, Calcium Level 8.6, Total Bilirubin 0.3, Aspartate Amino Transf (AST/SGOT) 15, Alanine Aminotransferase (ALT/SGPT) 30, Alkaline Phosphatase 130H, Total Protein 6.4, Albumin 2.7L, Albumin/Globulin Ratio 0.73L CBC/BMP Laboratory Tests 03/23/19 05:18 Microbiology Microbiology 03/20/19 Gram Stain - Final, Complete 03/20/19 Body Fluid Culture - Final, Complete 03/20/19 Anaerobic Culture - Final, Complete 03/19/19 Blood Culture - Preliminary, Resulted No Growth after 72 hours. All specime... 03/19/19 Blood Culture - Preliminary, Resulted No Growth after 72 hours. All specime... Discharge Medications Scheduled Amlodipine Besylate (Amlodipine Besylate) 5 Mg Tablet, 10 MG PO DAILY Amoxicillin/Potassium Clav (Augmentin 875-125 Tablet) 1 Each Tablet, 1 TAB PO BID Buprenorphine HCl/Naloxone HCl (Buprenorphin-Naloxon 8-2 mg Sl) 1 Each Tab.subl, 1 TAB SL TID, (Reported) HAS NOT TAKEN SINCE RECENT ILLNESS Dextroamphetamine/Amphetamine (Adderall 20 mg Tablet) 20 Mg Tablet, 20 MG PO BID, (Reported) HAS NOT TAKEN SINCE RECENT ILLNESS Docusate Sodium (Docusate Sodium) 100 Mg Capsule, 100 MG PO BID Lisinopril (Lisinopril) 20 Mg Tablet, 20 MG PO BID Methadone HCl (Methadone HCl) 5 Mg Tablet, 5 MG PO TID, (Reported) HAS NOT TAKEN SINCE RECENT ILLNESS Multivitamins (Thera M Plus Tablet) 1 Each Tablet, 1 TAB PO DAILY, (Reported) Scheduled PRN Acetaminophen (Acetaminophen) 325 Mg Tablet, 650 MG PO Q4H PRN for PAIN OR FEVER Ketorolac Tromethamine (Ketorolac Tromethamine) 10 Mg Tablet, 10 MG PO Q6H PRN for PAIN, (Reported) Ondansetron (Ondansetron Odt) 4 Mg Tab.rapdis, 4 MG PO Q6H PRN for NAUSEA, (Reported) Ramelteon (Ramelteon) 8 Mg Tablet, 8 MG PO QHS PRN for insomnia Senna (Senna Lax) 8.6 Mg Tablet, 2 TAB PO BIDP PRN for CONSTIPATION Allergies Coded Allergies: No Known Allergies (Unverified , 04/14/14) JUSTINA RODRIGUEZ DO Mar 23, 2019 12:06
--- NOTE | 2019-03-23 12:37 | IPN ---
DATE OF SERVICE: 03/23/2019 The patient overall seems to be doing well. He has been afebrile. His white count has dropped nicely down to 8.4 today; and otherwise, liver function tests look good. Slightly elevated alkaline phosphatase, but that really has not changed throughout his hospital course over the last several days. His drainage is much better than it was previously, and it is dropping down, and it is getting a little thinned out and almost a little bile tinge to it. He has some stones coming out the tube, as well. He had a bowel movement and states that overall he feels good, not distended, and has tolerated a regular diet for a couple days now. Otherwise, on his abdominal examination, his abdomen is soft, nontender, nondistended. He seems to be doing well from a surgical standpoint. IMPRESSION AND PLAN: The patient is status post percutaneous drainage for a cholecystitis. He seems to be making some good progress at this time. I do feel that he should be able to be discharged home with by mouth antibiotics and to followup this week for drain removal. I would recommend 5-7 days of by mouth antibiotics for him additionally, and he can see Dr. Sanchez in the office later on this week.
== END 2019-03-23 11:23 | disposition home or self-care (01) | DRG 710 ==
LOC: M ED 20:11 → M ED INP 20:53 → ENRESERV 21:03 → M MSPAV 22:01
PROVIDERS: ADMIT Internal Medicine; ATTEND Internal Medicine
PROC: 0F9430Z Drainage of Gallbladder with Drainage Device, Percutaneous Approach (ICD-10-PCS; principal; 2019-03-20 14:17)
DX: A41.9 Sepsis, unspecified organism (principal); K82.A2 Perforation of gallbladder in cholecystitis; K82.A1 Gangrene of gallbladder in cholecystitis; I10 Essential (primary) hypertension; E78.5 Hyperlipidemia, unspecified; K21.9 Gastro-esophageal reflux disease without esophagitis

== ENCOUNTER 2019-04-02 14:44 | Inpatient (IN) | payer OTHER ==
[~2019-04-02] VITALS: Ht 182.9 cm; Wt 90.2 kg
[~2019-04-02 14:44] MED LIST changes: +ACET1TAB55 PO; +ADDE20TA PO; +AMLO5TAB6 PO; +AUGM875T28 PO; +BUPR1SUB5 SL; +CIPR500T3 PO; +DOCU100C16 PO; +LISI-538 PO; +METH5TA PO; +METR-265 PO; -OMEP-172 PO; +OMEP1CAP73 PO; +RAME8TAB2 PO; +SENN18TA PO; +VITMTA PO
[2019-04-02 15:21] LABS: BASO % 0.2 % (0.0-1.0); EOS # 0.1 10^3/uL (0.0-0.5); EOS % 0.6 % (0.0-3.0); HEMATOCRIT 43.1 % (42.0-52.0); HEMOGLOBIN 13.3 g/dl (13.5-17.5); LYMPH # 1.7 10^3/uL (1.5-5.0); LYMPH % 10.2 % (24.0-44.0); MEAN CORPUSCULAR HEMOGLOBIN 28.8 pg (27.0-33.0); MEAN CORPUSCULAR HGB CONC 30.9 g/dl (32.0-36.5); MEAN CORPUSCULAR VOLUME 93.3 fl (80.0-96.0); MONO # 0.6 10^3/uL (0.0-0.8); MONO % 3.7 % (0.0-5.0); NEUTROPHILS # 14.2 10^3/uL (1.5-8.5); NEUTROPHILS % 84.8 % (36.0-66.0); PLATELET COUNT, AUTOMATED 472 10^3/uL (150-450); RED BLOOD COUNT 4.62 10^6/uL (4.30-6.10); WHITE BLOOD COUNT 16.7 10^3/uL (4.0-10.0)
[2019-04-02 15:43] LABS: ALBUMIN 4.2 GM/DL (3.2-5.2); ALT/SGPT 70 U/L (12-78); BILIRUBIN,DIRECT 0.1 MG/DL (0.0-0.2); BILIRUBIN,TOTAL 0.4 MG/DL (0.2-1.0); BLOOD UREA NITROGEN 17 MG/DL (7-18); CARBON DIOXIDE LEVEL 28 MEQ/L (21-32); CHLORIDE LEVEL 102 MEQ/L (98-107); CREATININE FOR GFR 0.87 MG/DL (0.70-1.30); GLOMERULAR FILTRATION RATE > 60.0 (>60); GLUCOSE, FASTING 97 MG/DL (70-100); LIPASE 57 U/L (73-393); POTASSIUM SERUM 5.3 MEQ/L (3.5-5.1); SODIUM LEVEL 137 MEQ/L (136-145); TOTAL PROTEIN 7.9 GM/DL (6.4-8.2)
[2019-04-02] MEDS ORDERED: ISOVUE-370 76% 100ML VIAL (Q9967) As Ordered ONE (15:48)
[2019-04-02] MEDS ORDERED: KETOROLAC 30 MG/ML VIAL (J1885) IV ONE (16:15)
--- NOTE | 2019-04-02 16:56 | REP ---
CT abdomen and pelvis with IV but without oral contrast: History: Right upper quadrant pain. Biliary drain. Comparison is made with images attendant to the CT-guided cholecystostomy tube drainage procedure dated March 20, 2019. CT contrast dose: 100 ml of intravenous Isovue 370. CT findings: Preliminary digital vendor management specialist radiograph demonstrates a percutaneous drainage catheter in the right upper quadrant of the abdomen. The bowel gas pattern is normal. The lung bases are clear. The liver and spleen are normal in size. The catheter course as through the liver. Parenchyma and its internal tip is seen within or adjacent to the gallbladder wall along its medial aspect. There is redundant loop of catheter within the peritoneal space along the surface of the liver. There is no evidence of parenchymal hematoma in the liver. The catheters partially dislodged from the gallbladder. Gallbladder wall remains somewhat thickened. There is no observable free intraperitoneal air. The spleen and adrenal glands are unremarkable. There is a tiny cyst in the upper pole left kidney. Seminal vesicles, prostate, and urinary bladder are unremarkable. Impression: Partially dislodged percutaneous cholecystostomy catheter. A loop of the catheter has formed in the peritoneal space and the catheter tip is not definitely within the gallbladder, seen along its wall. Electronically Signed by Jay Farr MD 04/02/2019 06:19 P
[2019-04-02] MEDS ORDERED: AMLO10TA5 PO (17:02)
[2019-04-02] MEDS ORDERED: LISI-538 PO (17:02)
[2019-04-02] MEDS ORDERED: MORPHINE 2 MG/ML 1ML VIAL (J2270) IV PRN (18:45)
[2019-04-02] MEDS ORDERED: ONDANSETRON 4MG/2ML VIAL (J2405) IV PRN (18:45)
[2019-04-02] MEDS ORDERED: oxyCODONE 5MG TAB PO PRN (18:45)
[2019-04-02] MEDS ORDERED: ONDANSETRON 4 MG TAB (S0181) PO PRN (18:45)
[2019-04-02] MEDS ORDERED: CIPROFLOXACIN 400 MG in IV 1 EA IV ONE (19:00)
[2019-04-02] MEDS: NS 1,000 ML IV SCH (19:06)
--- NOTE | 2019-04-02 19:09 | CR.PDOC ---
General Date of Consultation: Apr 02, 2019 Referring Provider: Jose Lopez Jr Consultation REASON FOR CONSULTATION/CHIEF COMPLAINT: Medical management HISTORY OF PRESENT ILLNESS: 43 y.o male w/ PMH of HTN, Opioid addiction, ADHD who was recently admitted for acute cholecystitis and discharged after placement of Cholecystostomy tube returns with RUQ abdominal pain. He was discharge two weeks ago, reports resolution of abdominal pain at that time, has followed up with Surgeon in the outpatient setting and advised to follow up in 3 weeks for re-evaluation and possible cholecystectomy. He reports decreased output from cholecystostomy tube for the past week and no output for the past 3-4 days. He felt fine up until today when the abdominal pain restarted; he also had associated nausea and chills. He was discharged with oral antibiotics which he completed 3-4 days ago after a total for ~[address] abdomen/Pelvis in the ED which shows dislodged cholecystostomy tube with the tip possibly in the peritoneal cavity. Patient is currently comfortable after getting pain control in the ED; he denies any SOB, CP, Nausea, vomiting or diarrhea at this time. 10 point review of system is negative except for above. ALLERGIES: Please see below. HOME MEDICATIONS: Please see below. PAST MEDICAL HISTORY: 1. Opioid addictions 2. HTN 3. ADHD PAST SURGICAL HISTORY: 1. Laminectomy (2016) 2. Cholecystostomy tube FAMILY HISTORY: No history of heart disease or malignancy in his parents SOCIAL HISTORY: Never smoker social alcohol use prior opioid abuse PHYSICAL EXAMINATION: VITAL SIGNS: Please see below. GENERAL APPEARANCE: no distress HEENT: moist mucous membranes RESPIRATORY: clear to auscultation CARDIOVASCULAR: S1, S2, no murmurs ABDOMEN: Soft, mild RUQ/R flank pain, cholecystomy w/ small amount of drainage, +BS, no rebound or guarding EXTREMITIES: ROM intact NEUROLOGICAL: No focal deficits PSYCHIATRIC: Calm LABORATORY DATA: Please see below. ASSESSMENT/PLAN: 43 y.o male w/ PMH of Opioid addiction, HTN & ADHD who was recently admitted for acute cholecystitis s/p Cholecystostomy tube placement being readmitted for possibly dislodged cholecystostomy tube. 1. Dislodged cholecystostomy tube - recently placed, primary team considering replacement via IR, agree w/ antibiotics, pain control & IV hydration. 2. Opioid addiction - continue home regimen of Methadone & Suboxone 3. ADHD - continue home Adderall 20 mg BID 4. HTN - continue home Norvasc & Lisinopril DVT Prophylaxis - TEDs GI Prophylaxis - PPI Vital Signs/I&O Vital Signs Date Time Temp Pulse Resp B/P (MAP) Pulse Ox O2 Delivery O2 Flow Rate FiO2 04/02/19 18:03 97.7 72 16 109/61 (77) 99 04/02/19 14:45 Room Air Laboratory Data Labs 24H Laboratory Tests 2 04/02/19 15:10: Immature Granulocyte % (Auto) 0.5, Neutrophils (%) (Auto) 84.8H, Lymphocytes (%) (Auto) 10.2L, Monocytes (%) (Auto) 3.7, Eosinophils (%) (Auto) 0.6, Basophils (%) (Auto) 0.2, Neutrophils # (Auto) 14.2H, Lymphocytes # (Auto) 1.7, Monocytes # (Auto) 0.6, Eosinophils # (Auto) 0.1, Basophils # (Auto) 0.0, Nucleated Red Blood Cells % (auto) 0.0, Anion Gap 7L, Glomerular Filtration Rate > 60.0, Calcium Level 10.0, Total Bilirubin 0.4, Direct Bilirubin 0.1, Aspartate Amino Transf (AST/SGOT) 22, Alanine Aminotransferase (ALT/SGPT) 70, Alkaline Phosphatase 133H, Total Protein 7.9, Albumin 4.2, Albumin/Globulin Ratio 1.14, Lipase 57L 04/02/19 15:59: Urine Color YELLOW, Urine Appearance HAZY, Urine pH 5.0, Urine Specific [place] 1.027, Urine Protein NEGATIVE, Urine Glucose (UA) NEGATIVE, Urine Ketones TRACEH, Urine Blood NEGATIVE, Urine Nitrite NEGATIVE, Urine Bilirubin NEGATIVE, Urine Urobilinogen 0.2, Urine Leukocyte Esterase NEGATIVE, Urine WBC (Auto) 1, Urine RBC (Auto) 5H, Urine Hyaline Casts (Auto) 1, Urine Bacteria (Auto) 1+H, Urine Squamous Epithelial Cells 0, Urine Mucus (Auto) SMALL, Urine Sperm (Auto) , Lactic Acid Level 2.1*H CBC/BMP Laboratory Tests 04/02/19 15:10 Microbiology Microbiology 04/02/19 Blood Culture, Received Pending 04/02/19 Blood Culture, Received Pending Allergies Coded Allergies: No Known Allergies (Unverified , 04/14/14) Home Medications Scheduled Amlodipine Besylate (Amlodipine Besylate) 10 Mg Tablet, 10 MG PO DAILY, (Reported) Buprenorphine HCl/Naloxone HCl (Buprenorphin-Naloxon 8-2 mg Sl) 1 Each Tab.subl, 1 TAB SL TID, (Reported) Dextroamphetamine/Amphetamine (Adderall 20 mg Tablet) 20 Mg Tablet, 20 MG PO BID, (Reported) Lisinopril (Lisinopril) 20 Mg Tablet, 20 MG PO BID, (Reported) Methadone HCl (Methadone HCl) 5 Mg Tablet, 5 MG PO TID, (Reported) Multivitamins (Thera M Plus Tablet) 1 Each Tablet, 1 TAB PO DAILY, (Reported) ELIGIO GARCIA MD Apr 02, 2019 19:09
[2019-04-02] MEDS: BUPRENORPHINE/NALOXONE 8-2MG SUBLINGUAL TABLET(SUBOXONE) SL SCH (20:22)
[2019-04-02] MEDS: METHADONE 5 MG TAB (S0109) PO SCH (20:22)
[2019-04-02 20:45] VITALS: BP 127/73
--- NOTE | 2019-04-02 21:56 | HPE ---
DATE OF ADMISSION: 04/02/2019 HISTORY OF PRESENT ILLNESS: The patient was recently discharged from the hospital for an acute cholecystitis and essentially was discharged home about a week ago. Had a cholecystostomy tube in and had some progressive right upper quadrant pain and discomfort. Over the last 12 hours noticed that he was having some nausea, some mild chills, and he had stopped antibiotics about 3 or 4 days ago for a total of 14 days. He noticed also the drainage from this catheter decreased. The CT scan in the emergency room reportedly showed a dislodged cholecystostomy tube; however, the tip appears to be still within the gallbladder itself. I do see some redundancy of the tube itself, but otherwise the cholecystostomy tube is putting out some bile at this time. In any case, given his chronic pain issues with Suboxone use and opioid addictions, he was difficult to get under control with pain, but he was able to become comfortable. He developed no nausea, no vomiting, no fevers, no chills prior to this. His past medical history is significant for history of amlodipine, Suboxone, Adderall, lisinopril, methadone, and multivitamins. Past medical history is significant for history of opioid addiction, hypertension, attention deficit hyperactivity disorder (ADHD), laminectomy, cholecystostomy tube. PHYSICAL EXAMINATION: Reveals a 43-year-old male who looks relatively comfortable in bed. He is moving around well without any significant complaints. HEENT is unremarkable. Neck supple without adenopathy. Lungs are clear to auscultation. Heart is regular. Abdomen is soft, mildly tender in the right upper quadrant and right flank area with bilious drainage from the cholecystostomy tube. His white count of 16,000. His LFTs are normal except for a slightly elevated alkaline phosphatase, which has been present for awhile. IMPRESSION AND PLAN: The patient has evidence of persistent cholecystitis on his CT scan with drainage that may be incomplete, inadequate at this point. I do feel that the tube needs to be readjusted and will get that scheduled for tomorrow. Will put him in for IV antibiotics, IV fluids, nothing by mouth for now, and continue to keep his pain under control and plan on repositioning of the cholecystostomy tube in the morning. I anticipate once this is accomplished and it is better established, his white count will drop nicely and once this is normalized can be discharged to home.
[2019-04-02] MEDS: lisinopriL 20 MG TAB PO SCH (22:32)
[2019-04-02] MEDS: KETOROLAC 30 MG/ML VIAL (J1885) IV SCH (22:32)
[2019-04-02] MEDS: metroNIDAZOLE 500 MG in IV 1 EA IV SCH (22:33)
[2019-04-03] VITALS (10 sets, daily range): BP systolic 101–180; BP diastolic 55–90
[2019-04-03] MEDS ORDERED: MORPHINE 4 MG/ML 1ML VIAL/SYRINGE (J2270) IV PRN ×2 (02:15→03:20)
[2019-04-03] MEDS: metroNIDAZOLE 500 MG in IV 1 EA IV SCH ×2 (04:19→16:21)
[2019-04-03] MEDS: KETOROLAC 30 MG/ML VIAL (J1885) IV SCH ×4 (04:19→20:39)
[2019-04-03] MEDS: CIPROFLOXACIN 400 MG in IV 1 EA IV SCH ×2 (06:17→17:46)
[2019-04-03 06:45] LABS: HEMATOCRIT 36.8 % (42.0-52.0); HEMOGLOBIN 11.9 g/dl (13.5-17.5); MEAN CORPUSCULAR HEMOGLOBIN 29.6 pg (27.0-33.0); MEAN CORPUSCULAR HGB CONC 32.3 g/dl (32.0-36.5); MEAN CORPUSCULAR VOLUME 91.5 fl (80.0-96.0); PLATELET COUNT, AUTOMATED 358 10^3/uL (150-450); RED BLOOD COUNT 4.02 10^6/uL (4.30-6.10); WHITE BLOOD COUNT 18.7 10^3/uL (4.0-10.0)
[2019-04-03 07:15] LABS: ALBUMIN 3.4 GM/DL (3.2-5.2); ALT/SGPT 49 U/L (12-78); BILIRUBIN,TOTAL 0.6 MG/DL (0.2-1.0); BLOOD UREA NITROGEN 19 MG/DL (7-18); CALCIUM LEVEL 8.8 MG/DL (8.5-10.1); CARBON DIOXIDE LEVEL 26 MEQ/L (21-32); CHLORIDE LEVEL 105 MEQ/L (98-107); CREATININE FOR GFR 0.78 MG/DL (0.70-1.30); GLOMERULAR FILTRATION RATE > 60.0 (>60); GLUCOSE, FASTING 99 MG/DL (70-100); LIPASE 50 U/L (73-393); POTASSIUM SERUM 4.6 MEQ/L (3.5-5.1); SODIUM LEVEL 137 MEQ/L (136-145); TOTAL PROTEIN 6.9 GM/DL (6.4-8.2)
[2019-04-03] MEDS: NS 1,000 ML IV SCH ×3 (08:10→17:46)
--- NOTE | 2019-04-03 08:45 | IPNPDOC ---
Text Note Date of Service The patient was seen on 04/03/19. NOTE No acute events overnight. He did have some severe pains in the RUQ followed by lots of output from his drain and then the pain subsided. Since he has not had much output in the past week I would assume that he likely had a small stone blocking his drain that has finally passed. This morning he is comfortable. Denies nausea, emesis, fevers, or chills. He has some tenderness in the RUQ, but much improved from yesterday. VSSAF NAD abd - soft, TTP RUQ, no rebound or guarding, drain in RUQ with bilious output labs - below A) 43y/o male with severe acute cholecystitis, and possible drain dislodgement vs. obstruction. P) NPO IR for drain evaluation and possible repositioning this afternoon abx regular diet after IR procedure IVF ambulate Alfredito Sanchez DO VS,Fishbone, I+O VS, Fishbone, I+O Laboratory Tests 04/02/19 15:10 04/03/19 06:30 Vital Signs Date Time Temp Pulse Resp B/P (MAP) Pulse Ox O2 Delivery O2 Flow Rate FiO2 04/03/19 04:19 98.1 77 18 101/62 (75) 97 Room Air I&O- Last 24 Hours up to 6 AM 04/03/19 06:00 Intake Total 200 ml Output Total 410 ml Balance -210 ml ELIECER SANCHEZ DO Apr 03, 2019 08:45
[2019-04-03] MEDS: BUPRENORPHINE/NALOXONE 8-2MG SUBLINGUAL TABLET(SUBOXONE) SL SCH ×3 (09:04→20:38)
[2019-04-03] MEDS: PANTOPRAZOLE 40MG INJ (PROTONIX) (C9113) IV SCH (09:04)
[2019-04-03] MEDS: METHADONE 5 MG TAB (S0109) PO SCH ×3 (09:04→20:38)
[2019-04-03] MEDS: MULTIVITAMINS/MINERALS THERAP 1 TAB PO SCH (09:04)
[2019-04-03] MEDS: lisinopriL 20 MG TAB PO SCH ×2 (09:06→20:40)
[2019-04-03] MEDS: amLODIPine 10 MG TAB PO SCH (09:07)
[2019-04-03] MEDS: ADDERALL 5 MG TAB PO SCH ×2 (11:48→14:00)
[2019-04-03] MEDS ORDERED: cefTRIAXone SOD 1 GM VIAL (J0696) As Ordered ONE (14:26)
[2019-04-03] MEDS ORDERED: ISOVUE-300 61% 50ML VIAL (Q9967) As Ordered ONE (14:27)
[2019-04-03] MEDS ORDERED: LIDOCAINE 1% MDV 20ML VIAL As Ordered ONE (14:28)
[2019-04-03] MEDS ORDERED: diphenhydrAMINE INJ 50MG/ML VIAL (J1200) As Ordered ONE (14:40)
[2019-04-03] MEDS ORDERED: fentaNYL 100 MCG/2 ML INJECTION (J3010) As Ordered ONE (14:41)
[2019-04-03] MEDS ORDERED: MIDAZOLAM INJ 2 MG/2 ML VIAL (J2250) As Ordered ONE (14:41)
--- NOTE | 2019-04-03 14:44 | IRMSE ---
[facility] IR Moderate Sedation Eval. Date and Time Date: Apr 03, 2019 Time: 14:43 ASA Classification ASA Classification: II-Mild systemic disease Mallampati Score: II NPO: Yes Obstructive Sleep Apnea: No Interval Plan: moderate sedation RAMILA LLANOS MD Apr 03, 2019 14:44
[2019-04-03] MEDS ORDERED: PROMETHAZINE INJ 25 MG/ML VIAL (J2550) As Ordered ONE (15:10)
--- NOTE | 2019-04-03 15:30 | POST-OPPD ---
Postoperative Procedure Note Date Of Procedure: Apr 03, 2019 Time Of Procedure: 15:26 PREOPERATIVE DIAGNOSIS: cholecystitis. drain retracted POSTOPERATIVE DIAGNOSIS: same FINDINGS: cholecystostomy catheter retracted. cholangiogram demonstrates gallbladder is decompressed. cystic duct remains obstructed. PROCEDURE: attempt at recanalization of gallbladder through existing catheter and replacement failed. Gallbladder too decompressed for new cholecystomy at present. SURGEON: josephine ANESTHESIA: mod sed ESTIMATED BLOOD LOSS: < 5 ml COMPLICATIONS: none POSTOPERATIVE CONDITION: stable RAMILA LLANOS MD Apr 03, 2019 15:29
[2019-04-04] MEDS: metroNIDAZOLE 500 MG in IV 1 EA IV SCH ×4 (00:33→23:13)
[2019-04-04] MEDS: KETOROLAC 30 MG/ML VIAL (J1885) IV SCH ×4 (04:19→21:29)
[2019-04-04] MEDS: NS 1,000 ML IV SCH ×3 (05:34→18:11)
[2019-04-04] MEDS: CIPROFLOXACIN 400 MG in IV 1 EA IV SCH ×2 (05:34→18:11)
[2019-04-04 05:54] VITALS: BP 123/72
[2019-04-04 06:12] LABS: HEMATOCRIT 31.9 % (42.0-52.0); HEMOGLOBIN 10.3 g/dl (13.5-17.5); MEAN CORPUSCULAR HGB CONC 32.3 g/dl (32.0-36.5); PLATELET COUNT, AUTOMATED 264 10^3/uL (150-450); RED BLOOD COUNT 3.43 10^6/uL (4.30-6.10); WHITE BLOOD COUNT 15.3 10^3/uL (4.0-10.0)
[2019-04-04 06:41] LABS: ALBUMIN 2.9 GM/DL (3.2-5.2); ALT/SGPT 33 U/L (12-78); BILIRUBIN,TOTAL 0.3 MG/DL (0.2-1.0); BLOOD UREA NITROGEN 13 MG/DL (7-18); CALCIUM LEVEL 8.1 MG/DL (8.5-10.1); CARBON DIOXIDE LEVEL 24 MEQ/L (21-32); CHLORIDE LEVEL 107 MEQ/L (98-107); CREATININE FOR GFR 0.79 MG/DL (0.70-1.30); GLOMERULAR FILTRATION RATE > 60.0 (>60); GLUCOSE, FASTING 109 MG/DL (70-100); LIPASE 83 U/L (73-393); POTASSIUM SERUM 4.3 MEQ/L (3.5-5.1); SODIUM LEVEL 138 MEQ/L (136-145); TOTAL PROTEIN 6.2 GM/DL (6.4-8.2)
--- NOTE | 2019-04-04 07:11 | REP ---
IR cholecystostomy catheter replacement. IR cholecystostogram. Clinical information: Cholecystitis. Cholecystostomy placed 2 weeks ago. Catheter retracted. Physician: Dr. Nick. Procedure: The patient was advised of the benefits, risks and alternatives of the procedure and informed consent was obtained. The time-out was performed with verification of the patient's name, MRN, site of procedure and type of procedure to be performed. The patient was positioned in the supine position on the angiographic table. The site was prepped and draped in the usual sterile fashion. Moderate sedation was performed by the physician including the presence of an independent trained observer who assisted in monitoring the patient's level of consciousness and physiologic status. Following the administration of Versed and Fentanyl, the physician spent 30 minutes of continuous face to face time with the patient. A mat inspector radiograph reveals a cholecystostomy catheter retracted back. An initial cholecystogram was performed through the existing catheter and demonstrates communication with the gallbladder. The gallbladder is decompressed. Cystic duct remnant obstructed. Lidocaine was injected around the catheter exit site. The catheter and sutures were cut, a wire was advanced through the existing catheter under fluoroscopy guidance into the gallbladder. The catheter was removed over the wire. A 5-Macedonian kumpe catheter was advanced over the wire under fluoroscopy guidance but could not be used recannulate the gallbladder. Access lost. Gallbladder too decompressed for new cholecystostomy placement. A sterile dressing was applied to the site. The patient tolerated the procedure well and was returned to the [facility] in stable condition. EBL: Less than 5 ml. Complications: None. Conclusion: 1. Cholecystostomy demonstrates decompressed gallbladder and persistent cystic duct obstruction. 2. Unsuccessful replacement of cholecystostomy catheter. Gallbladder is too decompressed for new cholecystostomy at present. Consider surgical options. Thank you this referral. Electronically Signed by Barbara Nick MD 04/04/2019 07:09 A
[2019-04-04] MEDS: METHADONE 5 MG TAB (S0109) PO SCH ×3 (08:17→20:35)
[2019-04-04] MEDS: ADDERALL 5 MG TAB PO SCH ×2 (08:17→14:52)
[2019-04-04] MEDS: MULTIVITAMINS/MINERALS THERAP 1 TAB PO SCH (08:18)
[2019-04-04] MEDS: lisinopriL 20 MG TAB PO SCH ×2 (08:18→20:35)
[2019-04-04] MEDS: PANTOPRAZOLE 40MG INJ (PROTONIX) (C9113) IV SCH (08:18)
[2019-04-04] MEDS: amLODIPine 10 MG TAB PO SCH (08:18)
[2019-04-04] MEDS: BUPRENORPHINE/NALOXONE 8-2MG SUBLINGUAL TABLET(SUBOXONE) SL SCH ×3 (08:18→20:35)
--- NOTE | 2019-04-04 13:10 | IPNPDOC ---
Text Note Date of Service The patient was seen on 04/04/19. NOTE No acute events overnight. The drain was assessed yesterday afternoon and was removed. This morning he is comfortable. Denies nausea, emesis, fevers, or chills. He has some tenderness in the RUQ, but much improved from yesterday still. VSSAF NAD abd - soft, TTP RUQ, no rebound or guarding, drain in RUQ with bilious output labs - below A) 43y/o male with severe acute cholecystitis P) reg diet abx IVF ambulate monitor labs, possible d/c tomorrow if continuing to improve Alfredito Sanchez DO VS,Fishbone, I+O VS, Fishbone, I+O Laboratory Tests 04/04/19 06:02 Vital Signs Date Time Temp Pulse Resp B/P (MAP) Pulse Ox O2 Delivery O2 Flow Rate FiO2 04/04/19 08:18 123/72 04/04/19 08:18 80 04/04/19 05:54 96.9 20 96 Room Air 04/03/19 15:30 2 I&O- Last 24 Hours up to 6 AM 04/04/19 06:00 Intake Total 1700 ml Output Total 450 ml Balance 1250 ml ELIECER SANCHEZ DO Apr 04, 2019 13:10
[2019-04-04 14:17] VITALS: BP 175/86
[2019-04-04 20:35] VITALS: BP 168/86
[2019-04-04] MEDS: MIRALAX *UNIT DOSE* 17GM PACKET PO SCH (20:35)
[2019-04-04] MEDS: SENOKOT S TAB PO SCH (20:35)
[2019-04-04 21:42] VITALS: BP 148/83
[2019-04-05] MEDS: NS 1,000 ML IV SCH (02:52)
[2019-04-05 03:00] VITALS: BP 159/98
[2019-04-05] MEDS: KETOROLAC 30 MG/ML VIAL (J1885) IV SCH ×4 (03:08→21:39)
[2019-04-05] MEDS: CIPROFLOXACIN 400 MG in IV 1 EA IV SCH (05:53)
[2019-04-05 06:09] VITALS: BP 108/73
[2019-04-05 06:39] LABS: HEMATOCRIT 31.4 % (42.0-52.0); HEMOGLOBIN 9.9 g/dl (13.5-17.5); MEAN CORPUSCULAR HEMOGLOBIN 29.1 pg (27.0-33.0); MEAN CORPUSCULAR HGB CONC 31.5 g/dl (32.0-36.5); MEAN CORPUSCULAR VOLUME 92.4 fl (80.0-96.0); PLATELET COUNT, AUTOMATED 248 10^3/uL (150-450); WHITE BLOOD COUNT 10.1 10^3/uL (4.0-10.0)
[2019-04-05 07:13] LABS: ALBUMIN 2.7 GM/DL (3.2-5.2); ALT/SGPT 30 U/L (12-78); BILIRUBIN,TOTAL 0.4 MG/DL (0.2-1.0); BLOOD UREA NITROGEN 8 MG/DL (7-18); CALCIUM LEVEL 8.7 MG/DL (8.5-10.1); CARBON DIOXIDE LEVEL 26 MEQ/L (21-32); CHLORIDE LEVEL 107 MEQ/L (98-107); CREATININE FOR GFR 0.64 MG/DL (0.70-1.30); GLOMERULAR FILTRATION RATE > 60.0 (>60); GLUCOSE, FASTING 88 MG/DL (70-100); LIPASE 73 U/L (73-393); POTASSIUM SERUM 4.2 MEQ/L (3.5-5.1); SODIUM LEVEL 140 MEQ/L (136-145); TOTAL PROTEIN 6.4 GM/DL (6.4-8.2)
[2019-04-05] MEDS: metroNIDAZOLE 500 MG in IV 1 EA IV SCH (08:18)
[2019-04-05] MEDS: MIRALAX *UNIT DOSE* 17GM PACKET PO SCH ×2 (08:18→20:25)
[2019-04-05] MEDS: ADDERALL 5 MG TAB PO SCH ×2 (08:19→14:34)
[2019-04-05] MEDS: lisinopriL 20 MG TAB PO SCH ×2 (08:20→20:25)
[2019-04-05] MEDS: METHADONE 5 MG TAB (S0109) PO SCH ×3 (08:21→20:26)
[2019-04-05] MEDS: amLODIPine 10 MG TAB PO SCH (08:21)
[2019-04-05] MEDS: SENOKOT S TAB PO SCH ×2 (08:21→20:26)
[2019-04-05] MEDS: BUPRENORPHINE/NALOXONE 8-2MG SUBLINGUAL TABLET(SUBOXONE) SL SCH ×3 (08:22→20:26)
[2019-04-05] MEDS: MULTIVITAMINS/MINERALS THERAP 1 TAB PO SCH (08:22)
[2019-04-05] MEDS: PANTOPRAZOLE 40MG INJ (PROTONIX) (C9113) IV SCH (08:22)
--- NOTE | 2019-04-05 12:21 | IPNPDOC ---
Text Note Date of Service The patient was seen on 04/05/19. NOTE Patient reports still greg tender on the right side but he is tolerating reg ular food. No nausea or vomiting. He has been afebrile. On exam, he looks comfortable no jaundice His abdomen does not look distended. Previous drain site has a dry dressing on. He is somewhat tender on the right side on mild palpation. No rebound Cholecystitis His leukocytosis is improving. Though he is reporting discomfort, he seems to be doing better than when he came in. I will keep him today and if his leukocytosis continue to improve and exam is better or just about the same, will send home tomorrow on oral antibiotics to follow up with Dr. Sanchez in a couple more weeks and consider interval cholecystectomy then. VS,Ulysses, I+O VS, Ulysses, I+O Laboratory Tests 04/05/19 06:13 Vital Signs Date Time Temp Pulse Resp B/P (MAP) Pulse Ox O2 Delivery O2 Flow Rate FiO2 04/05/19 08:21 75 135/84 04/05/19 06:09 98.5 20 97 Room Air 04/03/19 15:30 2 I&O- Last 24 Hours up to 6 AM 04/05/19 06:00 Intake Total 3160 ml Output Total 2150 ml Balance 1010 ml JORGE OLIVER MD Apr 05, 2019 11:36
[2019-04-05 14:00] VITALS: BP 154/91
[2019-04-05] MEDS: metroNIDAZOLE (FLAGYL) 500 MG TAB PO SCH ×2 (14:34→21:39)
[2019-04-05] MEDS: CIPROFLOXACIN 500 MG TAB PO SCH (16:56)
[2019-04-05 22:00] VITALS: BP 154/88
[2019-04-06 02:00] VITALS: BP 130/78
[2019-04-06] MEDS: CIPROFLOXACIN 500 MG TAB PO SCH (05:01)
[2019-04-06] MEDS: metroNIDAZOLE (FLAGYL) 500 MG TAB PO SCH (05:01)
[2019-04-06] MEDS: KETOROLAC 30 MG/ML VIAL (J1885) IV SCH ×2 (05:01→10:36)
[2019-04-06 06:00] VITALS: BP 136/81
[2019-04-06 06:58] LABS: HEMATOCRIT 29.9 % (42.0-52.0); HEMOGLOBIN 9.8 g/dl (13.5-17.5); MEAN CORPUSCULAR HEMOGLOBIN 29.7 pg (27.0-33.0); MEAN CORPUSCULAR HGB CONC 32.8 g/dl (32.0-36.5); MEAN CORPUSCULAR VOLUME 90.6 fl (80.0-96.0); PLATELET COUNT, AUTOMATED 255 10^3/uL (150-450); WHITE BLOOD COUNT 11.1 10^3/uL (4.0-10.0)
[2019-04-06 07:27] LABS: ALBUMIN 2.8 GM/DL (3.2-5.2); ALT/SGPT 43 U/L (12-78); BILIRUBIN,TOTAL 0.7 MG/DL (0.2-1.0); BLOOD UREA NITROGEN 7 MG/DL (7-18); CALCIUM LEVEL 8.4 MG/DL (8.5-10.1); CARBON DIOXIDE LEVEL 28 MEQ/L (21-32); CHLORIDE LEVEL 104 MEQ/L (98-107); CREATININE FOR GFR 0.67 MG/DL (0.70-1.30); GLOMERULAR FILTRATION RATE > 60.0 (>60); GLUCOSE, FASTING 96 MG/DL (70-100); LIPASE 46 U/L (73-393); SODIUM LEVEL 137 MEQ/L (136-145); TOTAL PROTEIN 6.8 GM/DL (6.4-8.2)
[2019-04-06] MEDS: MIRALAX *UNIT DOSE* 17GM PACKET PO SCH (08:05)
[2019-04-06] MEDS: PANTOPRAZOLE 40MG INJ (PROTONIX) (C9113) IV SCH (08:05)
[2019-04-06 08:06] VITALS: BP 136/81
[2019-04-06] MEDS: BUPRENORPHINE/NALOXONE 8-2MG SUBLINGUAL TABLET(SUBOXONE) SL SCH (08:06)
[2019-04-06] MEDS: MULTIVITAMINS/MINERALS THERAP 1 TAB PO SCH (08:06)
[2019-04-06] MEDS: METHADONE 5 MG TAB (S0109) PO SCH (08:06)
[2019-04-06] MEDS: lisinopriL 20 MG TAB PO SCH (08:06)
[2019-04-06] MEDS: amLODIPine 10 MG TAB PO SCH (08:06)
[2019-04-06] MEDS: ADDERALL 5 MG TAB PO SCH (08:06)
[2019-04-06] MEDS: SENOKOT S TAB PO SCH (08:07)
[2019-04-06] MEDS ORDERED: KETO10TAB PO (10:49)
[2019-04-06] MEDS ORDERED: FLAG500T PO (10:49)
[2019-04-06] MEDS ORDERED: CIPR-249 PO (10:49)
--- NOTE | 2019-04-06 10:51 | IPNPDOC ---
Text Note Date of Service The patient was seen on 04/06/19. NOTE Patient seen walking the hallway comfortably, reports hes doing well, tolera ting diet, mild discomfort on the right side of abdomen. On exam, he looks comfortable no jaundice His abdomen does not look distended. Previous drain site has a dry dressing on. Very minimal tenderness right lateral subcostal abdomen without rebound or guarding on deep palpation. Cholecystitis Doing well. D/c home on oral cipro and metronidazole and follow up with Dr. Sanchez for interval cholecystectomy VS,Ulysses, I+O VS, Ulysses, I+O Laboratory Tests 04/06/19 06:37 Vital Signs Date Time Temp Pulse Resp B/P (MAP) Pulse Ox O2 Delivery O2 Flow Rate FiO2 04/06/19 08:06 136/81 04/06/19 08:06 90 04/06/19 06:00 98.9 18 97 Room Air 04/03/19 15:30 2 I&O- Last 24 Hours up to 6 AM 04/06/19 06:00 Intake Total 2460 ml Output Total 1325 ml Balance 1135 ml JORGE OLIVER MD Apr 06, 2019 10:51
--- NOTE | 2019-04-08 19:05 | DSES ---
DATE OF ADMISSION: 04/02/2019 DATE OF DISCHARGE: 04/06/2019 ADMISSION DIAGNOSES: 1. Acute cholecystitis. 2. Possible dislodged drain. DISCHARGE DIAGNOSES: 1. Acute cholecystitis. 2. Possible dislodged drain. HOSPITAL COURSE: The patient is a 43-year-old male. He came in with increasing pain and fevers on 04/02/2019. He had a cholecystostomy drain in place from prior admission. CT showed that the drain was still in place but had possibly been partially dislodged. He was started on IV fluids and antibiotics overnight. On hospital day one, he was sent down interventional radiology. They did a cholangiogram which showed blockage of the cystic duct. They then removed his drain and tried to replace it but could not get it replaced because the gallbladder was so contracted. Drain was left out and he was sent back to the floor and started back on a regular diet. Over the next couple of days with the antibiotics and regular diet, he continued to improve. His white count came down from 18 down to 11. His abdominal pain was still present in the right upper quadrant but it was tolerable. He was discharged home on 04/06/2019. The plan is to followup with me in the office in a couple of days. He was also sent home with oral Cipro and Flagyl to take and recommendations to call us if he has any increase in pain or fevers. We explained to him that there was a good chance that he could redevelop an abscess in the right upper quadrant, so if he does have increasing pain or fevers, he should call us for repeat imaging and possible repeat drain placemen. As of now, his surgery is already scheduled for the first week of May 2019. He will continue on with that surgery date unless something changes in the meantime.
== END 2019-04-06 13:26 | disposition home or self-care (01) | DRG 813 ==
LOC: M ED 14:44 → M ED INP 18:33 → ENRESERV 20:01 → M MS4PR 20:36 → M MS5PR 04-03 16:00
PROVIDERS: ADMIT Surgery; ATTEND Surgery
PROC: 0FP4X0Z Removal of Drainage Device from Gallbladder, External Approach (ICD-10-PCS; principal; 2019-04-03 14:30)
DX: T85.528A Displacement of other gastrointestinal prosthetic devices, implants and grafts, initial encounter (principal); K81.0 Acute cholecystitis; I10 Essential (primary) hypertension; Z93.4 Other artificial openings of gastrointestinal tract status; F11.21 Opioid dependence, in remission; F90.9 Attention-deficit hyperactivity disorder, unspecified type; Z79.899 Other long term (current) drug therapy; K82.9 Disease of gallbladder, unspecified; D72.829 Elevated white blood cell count, unspecified

== ENCOUNTER → 2019-05-01 | Outpatient (CLI) | payer OTHER ==
[~2019-05-01] MED LIST changes: +AMLO10TA5 PO
[2019-05-01 09:16] LABS: HEMATOCRIT 37.1 % (42.0-52.0); HEMOGLOBIN 11.4 g/dl (13.5-17.5); MEAN CORPUSCULAR HEMOGLOBIN 28.2 pg (27.0-33.0); MEAN CORPUSCULAR HGB CONC 30.7 g/dl (32.0-36.5); MEAN CORPUSCULAR VOLUME 91.8 fl (80.0-96.0); PLATELET COUNT, AUTOMATED 382 10^3/uL (150-450); RED BLOOD COUNT 4.04 10^6/uL (4.30-6.10); WHITE BLOOD COUNT 10.2 10^3/uL (4.0-10.0)
[2019-05-01 09:26] LABS: INR 1.08; PROTHROMBIN TIME 13.7 SECONDS (11.8-14.0)
[2019-05-01 09:46] LABS: ALBUMIN 3.7 GM/DL (3.2-5.2); ALT/SGPT 47 U/L (12-78); BILIRUBIN,TOTAL 0.2 MG/DL (0.2-1.0); BLOOD UREA NITROGEN 13 MG/DL (7-18); CALCIUM LEVEL 8.9 MG/DL (8.5-10.1); CARBON DIOXIDE LEVEL 28 MEQ/L (21-32); CHLORIDE LEVEL 105 MEQ/L (98-107); CHOLESTEROL LEVEL 142 MG/DL (<200); CREATININE FOR GFR 0.68 MG/DL (0.70-1.30); GLOMERULAR FILTRATION RATE > 60.0 (>60); GLUCOSE, FASTING 93 MG/DL (70-100); HDL CHOLESTEROL 42 MG/DL (>40); LDL CHOLESTEROL 83 MG/DL (<100); NON-HDL-C 100 MG/DL; POTASSIUM SERUM 4.5 MEQ/L (3.5-5.1); SODIUM LEVEL 140 MEQ/L (136-145); TOTAL PROTEIN 7.5 GM/DL (6.4-8.2); TRIGLYCERIDES LEVEL 87 MG/DL (<150)
[2019-05-01 10:02] LABS: HEMOGLOBIN A1c 5.6 %
--- NOTE | 2019-05-01 10:12 | ECGEPIP ---
[facility] Test Date: 2019-05-01 Pat Name: SANDY GAY Department: Room: - Gender: Male [employer] Manager: MARYANNE : 1975 Requested By: Yong Turcios Order Number: [id number] Reading MD: Mary Steven Measurements Intervals [place] Rate: 66 P: 56 WI: 138 QRS: 56 QRSD: 98 T: 53 QT: 394 QTc: 414 Interpretive Statements SINUS RHYTHM RATE FASTER MILD CHANGE IN QRS AXIS Electronically Signed on 05-01-2019 10:12:01 EST by Mary Steven
--- NOTE | 2019-05-01 15:54 | REP ---
Clinical: Hypertension. Preoperative assessment . Comparison: None . Technique: PA and lateral. Findings: The mediastinum and cardiac silhouette are normal. The lung miller are clear and without acute consolidation, effusion, or pneumothorax. The skeletal structures are intact and normal. Impression: 1. No acute cardiopulmonary process. Electronically Signed by Rudy Jackson MD 05/01/2019 09:07 A
== END ==
LOC: M LAB 08:32
PROVIDERS: ATTEND Family Medicine
DX: Z01.818 Encounter for other preprocedural examination (principal); I10 Essential (primary) hypertension

== ENCOUNTER 2019-05-23 10:56 | Day surgery (SDC) | payer OTHER ==
[~2019-05-23] VITALS: Ht 182.9 cm; Wt 89.8 kg
[~2019-05-23 10:56] MED LIST changes: +ADDE1TAB14 PO; +LR 1,000 ML IV ONE; +SIMV20TA22 PO
[2019-05-23] MEDS ORDERED: BUPIVACAINE/EPIN 0.25% 30 ML VIAL As Ordered ONE (13:34)
[2019-05-23] MEDS ORDERED: ONDANSETRON 4MG/2ML VIAL (J2405) As Ordered ONE (13:44)
[2019-05-23] MEDS ORDERED: ROCURONIUM BROMIDE 50 MG/5 ML VIAL As Ordered ONE ×2 (13:44→14:51)
[2019-05-23] MEDS ORDERED: fentaNYL 250 MCG/5 ML INJECTION (J3010) As Ordered ONE (13:44)
[2019-05-23] MEDS ORDERED: METOCLOPRAMIDE INJ 10MG/2ML VIAL (J2765) As Ordered ONE (13:44)
[2019-05-23] MEDS ORDERED: LIDOCAINE 2% INJ 100 MG/5 ML SDV (FOR ANES.) As Ordered ONE ×2 (13:44→13:53)
[2019-05-23] MEDS ORDERED: propofoL 200 MG/20 ML VIAL As Ordered ONE (13:44)
[2019-05-23] MEDS ORDERED: dexameTHASONE 4 MG/ML 1ML VIAL (J1100) As Ordered ONE (13:44)
[2019-05-23] MEDS ORDERED: SUGAMMADEX SODIUM 500 MG/5 ML VIAL (BRIDION) As Ordered ONE (13:44)
[2019-05-23] MEDS ORDERED: MIDAZOLAM INJ 2 MG/2 ML VIAL (J2250) As Ordered ONE (13:44)
[2019-05-23] MEDS ORDERED: ACETAMINOPHEN 1000MG 100ML IV BTL (OFIRMEV) (J0131 PER 10MG) As Ordered ONE (13:47)
[2019-05-23] MEDS ORDERED: KETOROLAC 30 MG/ML VIAL (J1885) IV PRN (13:50)
[2019-05-23] MEDS ORDERED: KETOROLAC 60 MG/2 ML VIAL (J1885) As Ordered ONE (14:08)
[2019-05-23] MEDS ORDERED: LABETALOL HCL 100 MG/20 ML VIAL As Ordered ONE (14:15)
[2019-05-23] MEDS ORDERED: HYDROmorphone HCL 2 MG/ML 1ML VIAL (J1170) As Ordered ONE (14:27)
[2019-05-23] MEDS ORDERED: ZOSYN 3.375 GM VIAL (J2543) As Ordered ONE (14:55)
[2019-05-23] MEDS ORDERED: fentaNYL 100 MCG/2 ML INJECTION (J3010) As Ordered ONE (16:11)
[2019-05-23] MEDS: fentaNYL 100 MCG/2 ML INJECTION (J3010) IV PRN ×4 (16:13→16:28)
[2019-05-23] MEDS ORDERED: LR 1,000 ML IV SCH (16:30)
[2019-05-23] MEDS ORDERED: ONDANSETRON 4MG/2ML VIAL (J2405) IV PRN (16:30)
[2019-05-23] MEDS ORDERED: oxyCODONE 5MG TAB PO PRN (16:30)
[2019-05-23] MEDS ORDERED: NORCO, ANEXSIA 5/325MG TABLET (HYDROcodone/ACETAMINOPHEN) PO PRN (16:30)
[2019-05-23] MEDS ORDERED: HYDROMORPHONE HCL 0.5 MG/ 0.5 ML SYRINGE (J1170 PER 1) As Ordered ONE (16:45)
[2019-05-23] MEDS: HYDROMORPHONE HCL 0.5 MG/ 0.5 ML SYRINGE (J1170 PER 1) IV PRN ×2 (16:48→17:03)
[2019-05-23] MEDS ORDERED: HYDROMORPHONE HCL 0.5 MG/ 0.5 ML SYRINGE (J1170 PER 1) IV PRN (17:00)
[2019-05-23 18:30] VITALS: BP 155/72
--- NOTE | 2019-05-26 23:43 | RO ---
DATE OF PROCEDURE: 05/23/2019 PREOPERATIVE DIAGNOSIS: Cholecystitis. POSTOPERATIVE DIAGNOSIS: Cholecystitis. PROCEDURE: Robotic lysis of adhesions in the right upper quadrant with a partial cholecystectomy. SURGEON: Dr. Mario Sanchez SEWING MACHINES SALESPERSON: Tanna Tinoco ANESTHESIA: General. ESTIMATED BLOOD LOSS: 40 mL. COMPLICATIONS: Acute inflammation. INDICATION FOR PROCEDURE: The patient is a 43-year-old male who was here a few months ago with acute cholecystitis. He was septic because of it and had a cholecystostomy drain placed at that time. The drain fell out after a few days and was unable to be reinserted due to lack of fluid within the gallbladder. He has been feeling well lately. Recommendation was to proceed with robotic repair. Risks and benefits of the procedure not limited to but including bleeding, infection, hernia formation, damage to surrounding structures, and need for further surgery were discussed in detail with the patient. Informed consent was obtained and procedure was planned. DESCRIPTION OF PROCEDURE: The patient was brought back to operating room seven, after sufficient sedation, the abdomen was sterilely prepped and draped. Next, a time-out was done to confirm proper patient, proper procedure. 8 mm incision then made in the left upper quadrant, Veress needle inserted, and the abdomen was insufflated 15 mmHg. Veress needle was then removed and replaced with the Optiview port. The abdomen was examined. Extensive adhesions were identified from the liver and the omentum into the right upper quadrant. Three more robotic ports were then placed, and the robot was docked. Once the robot was docked, adhesions were taken down from the omentum and the liver capsule up into the right upper quadrant of the abdominal wall. The omentum was then carefully dissected inferiorly away from the top of the liver, and then from medial to lateral along the liver edge until the gallbladder fundus could be identified. Once it was identified, it punctured immediately and pus was draining from it. I aspirated all the pus out and inside of the gallbladder was a large stone. It was very fragile. I was unable to grab onto it and remove it. It kept fracturing into multiple pieces. Eventually I was able to get it out into three large chunks, the remaining chunks that were removed were all crunched up into tiny pieces and aspirated through the suction ld teacher. Chunks of this stone were placed inside of an Endo Catch bag, brought out through the far right sided port. ICG placed and even using the ICG, I was unable to identify any of the bile ducts safely, so the decision was made after consulting with senior staff that it was safest to abort the procedure at this point. The right upper quadrant was irrigated copiously with saline, a #19-Greenland[place] Jeffery drain was placed inside of the gallbladder fossa, brought out through the right-sided port site. The gallbladder was brought out through the most right lateral port. The fascia was then closed from the peritoneal surface using a #2-0 V-Loc suture. Once that was completed, the abdomen was desufflated, drain was sutured in place with a #2-0 silk suture. Skin incisions closed with #4-0 Vicryl subcuticular sutures. The abdomen was cleaned and dried, 4x4 and tape were applied thus ending procedure.
== END 2019-05-23 18:35 | disposition home or self-care (01) ==
LOC: M SDC 10:56
PROVIDERS: ATTEND Surgery
DX: K80.20 Calculus of gallbladder without cholecystitis without obstruction (principal); K66.0 Peritoneal adhesions (postprocedural) (postinfection); K91.71 Accidental puncture and laceration of a digestive system organ or structure during a digestive system procedure; I10 Essential (primary) hypertension; E78.5 Hyperlipidemia, unspecified; M54.9 Dorsalgia, unspecified; K21.9 Gastro-esophageal reflux disease without esophagitis; M19.90 Unspecified osteoarthritis, unspecified site; F19.10 Other psychoactive substance abuse, uncomplicated; F17.220 Nicotine dependence, chewing tobacco, uncomplicated; Z79.899 Other long term (current) drug therapy
CPT/HCPCS: 47562; 88300; J0131; J1100; J1170; J1885; J2250; J2405; J2543; J2765; J3010

== ENCOUNTER 2019-06-08 12:52 | Inpatient (IN) | payer OTHER ==
[~2019-06-08] VITALS: Ht 182.9 cm; Wt 81.5 kg
[~2019-06-08 12:52] MED LIST changes: -LR 1,000 ML IV ONE
[2019-06-08] MEDS ORDERED: OMEP-218 PO (13:03)
[2019-06-08] MEDS ORDERED: LISI20TA19 PO (13:03)
[2019-06-08] MEDS ORDERED: ONDANSETRON 4MG/2ML VIAL (J2405) IV ONE (13:30)
[2019-06-08] MEDS ORDERED: NS 1,000 ML IV ONE ×2 (13:30→15:45)
[2019-06-08 13:52] LABS: BASO % 0.2 % (0.0-1.0); EOS # 0.1 10^3/uL (0.0-0.5); EOS % 0.4 % (0.0-3.0); HEMATOCRIT 34.4 % (42.0-52.0); HEMOGLOBIN 10.7 g/dl (13.5-17.5); LYMPH % 4.5 % (24.0-44.0); MEAN CORPUSCULAR HEMOGLOBIN 27.1 pg (27.0-33.0); MEAN CORPUSCULAR HGB CONC 31.1 g/dl (32.0-36.5); MEAN CORPUSCULAR VOLUME 87.1 fl (80.0-96.0); MONO # 0.9 10^3/uL (0.0-0.8); MONO % 4.3 % (0.0-5.0); NEUTROPHILS # 19.7 10^3/uL (1.5-8.5); NEUTROPHILS % 90.1 % (36.0-66.0); PLATELET COUNT, AUTOMATED 747 10^3/uL (150-450); RED BLOOD COUNT 3.95 10^6/uL (4.30-6.10); WHITE BLOOD COUNT 21.9 10^3/uL (4.0-10.0)
[2019-06-08 14:14] LABS: ALBUMIN 2.8 GM/DL (3.2-5.2); ALT/SGPT 113 U/L (12-78); AMYLASE 32 U/L (25-115); BILIRUBIN,DIRECT 0.3 MG/DL (0.0-0.2); BILIRUBIN,TOTAL 0.6 MG/DL (0.2-1.0); BLOOD UREA NITROGEN 17 MG/DL (7-18); CARBON DIOXIDE LEVEL 30 MEQ/L (21-32); CHLORIDE LEVEL 98 MEQ/L (98-107); CREATININE FOR GFR 0.91 MG/DL (0.70-1.30); GLOMERULAR FILTRATION RATE > 60.0 (>60); GLUCOSE, FASTING 146 MG/DL (70-100); LIPASE 48 U/L (73-393); POTASSIUM SERUM 4.6 MEQ/L (3.5-5.1); SODIUM LEVEL 134 MEQ/L (136-145); TOTAL PROTEIN 7.8 GM/DL (6.4-8.2)
[2019-06-08] MEDS ORDERED: ISOVUE-370 76% 100ML VIAL (Q9967) As Ordered ONE (14:17)
[2019-06-08] MEDS ORDERED: PIPERACILLIN/TAZOBACTAM SOD 3.375 GM in D5W MINI-BAG PLUS 50 ML IV ONE (15:15)
--- NOTE | 2019-06-08 15:28 | REP ---
Clinical: Open wound. Pain. Technique: Axial contrast enhanced images from the lung bases to the pubic symphysis with coronal and sagittal re-formations using 100 ml Isovue 370 intravenous contrast material. Comparison: 04/02/2019 Findings: There is a multiloculated rim enhancing fluid collection consistent with abscess extending from the gallbladder fossa to the infrahepatic right mid abdomen with rim enhancement, surrounding inflammatory stranding, and extension of inflammatory changes and fluid through the infrahepatic right anterolateral abdominal wall to the skin surface likely through the previously noted percutaneous cholecystostomy tube tract. The largest portion of the abscess collection measures approximately 9.0 x 4.9 x 5.3 cm. The gallbladder is not definitively identifiable and correlation with recent surgical history is recommended. The liver is relatively normal although secondary inflammatory changes along the inferior margin of the liver due to the above mentioned abscess/complicated cholecystitis is suggested. The spleen, pancreas, bilateral adrenal glands and kidneys are normal. Evaluation of the enteric system is without obstruction although secondary focal inflammatory changes involving the ascending colon and hepatic flexure due to the above mentioned abscess/complicated cholecystitis is noted. Remainder of the small and large bowel is unremarkable. Pelvis demonstrates normal bladder and age appropriate prostate/seminal vesicles. Minimal ascites extends into the pelvis. Osseous structures are intact. Lung bases are clear. Impression: 1. Multiloculated abscess in the right upper quadrant as detailed above. Differential diagnosis includes abscess/fistula to the skin surface and/or associated complicated cholecystitis. The gallbladder itself cannot definitively be identified due to the surrounding inflammatory changes. 2. Secondary inflammatory changes involving the liver and adjacent hepatic flexure of the colon noted. Electronically Signed by Rudy Jackson MD 06/08/2019 03:20 P
--- NOTE | 2019-06-08 15:57 | HPEPDOC ---
[facility] Medical History & Physical Date of Admission Jun 08, 2019 Date of Service: Jun 08, 2019 History and Physical CHIEF COMPLAINT: HISTORY OF PRESENT ILLNESS: 43 y.o male w/ PMH of HTN, Opioid addiction, ADHD who was recently underwent robotic lysis of adhesion in the RUQ with a partial choly (05/23/19). He has had a few admission this year pertaining to abdominal pain, previously admitted for acute cholecystitis and discharged after placement of cholecystostomy tube. At that time he returned for worsening pain/fever, and was found to be septic. His drain was removed but could not be replaced as his gall bladder was significantly contracted. He improved with antibiotics and IV fluids, and was discharged home on 04/06/2019. He did follow up with surgery as noted, for lysis of adhesions on 05/23/19. Today he presents for RUQ abdominal pain, swelling for one night. Just prior to presentation, he states a 'bubble popped' at the site a previous procedure. He states his pain is now significantly improved. He denies chest pain, shortness of breath, cough, N/V/D. PAST MEDICAL HISTORY: #opioid addiction - suboxone/methadone #HTN #ADHD PAST SURGICAL HISTORY: #choly tube #lysis of adhesions ALLERGIES: Please see below. REVIEW OF SYSTEMS: negative except as per HPI HOME MEDICATIONS: Please see below. PHYSICAL EXAMINATION: VITAL SIGNS: See below GENERAL APPEARANCE: NAD, lying comfortably in bed HEENT: NC/AT, EOMI Lungs: CTA B/L Heart: +S1S2, RRR Abd: soft, minimal tenderness, +BS, RLQ bandages in place, copious purulent discharge LABORATORY DATA: See below. MICROBIOLOGY: Please see below. ASSESSMENT: 43 yo male with PMHx of acute cholecystitis s/p choly tube complicated with abdominal infx/sepsis, recent lysis of adhesions, returns for abdominal abscess. #abd abscess - start IV zosyn - cultures pending - IV fluids - IR c/s tomorrow when available - possible LACI drain? - abscess appears to be draining well at present - d/w surgery - assistance appreciated - no surgical intervention - c/s pending #HTN - continue home Rx with hold parameters #opioid addiction - continue home meds #HLD - continue statin therapy #DVT prophylaxis - mechanical Vital Signs Vital Signs Date Time Temp Pulse Resp B/P (MAP) Pulse Ox O2 Delivery O2 Flow Rate FiO2 3/22/20 13:19 06/08/19 12:53 98.7 104 20 100 Room Air Laboratory Data Labs 24H Laboratory Tests 2 06/08/19 13:39: Immature Granulocyte % (Auto) 0.5, Neutrophils (%) (Auto) 90.1H, Lymphocytes (%) (Auto) 4.5L, Monocytes (%) (Auto) 4.3, Eosinophils (%) (Auto) 0.4, Basophils (%) (Auto) 0.2, Neutrophils # (Auto) 19.7H, Lymphocytes # (Auto) 1.0L, Monocytes # (Auto) 0.9H, Eosinophils # (Auto) 0.1, Basophils # (Auto) 0.0, Nucleated Red Blood Cells % (auto) 0.0, Anion Gap 6L, Glomerular Filtration Rate > 60.0, Calcium Level 9.0, Total Bilirubin 0.6, Direct Bilirubin 0.3H, Aspartate Amino Transf (AST/SGOT) 86H, Alanine Aminotransferase (ALT/SGPT) 113H, Alkaline Phosphatase 567H, Total Protein 7.8, Albumin 2.8L, Albumin/Globulin Ratio 0.56L, Amylase Level 32, Lipase 48L CBC/BMP Laboratory Tests 06/08/19 13:39 Microbiology Microbiology 06/08/19 Gram Stain, Received Pending 06/08/19 Wound Culture, Received Pending Home Medications Scheduled Buprenorphine HCl/Naloxone HCl (Buprenorphin-Naloxon 8-2 mg Sl) 1 Each Tab.subl, 1 TAB SL TID Dextroamphetamine/Amphetamine (Adderall 5 mg Tablet) 5 Mg Tablet, 20 MG PO BID TAKES AM/AFTERNOON Lisinopril/Hydrochlorothiazide (Lisinopril-Hctz 20-12.5 mg Tab) 1 Each Tablet, 1 TAB PO QHS Methadone HCl (Methadone HCl) 5 Mg Tablet, 5 MG PO TID Simvastatin (Simvastatin) 20 Mg Tablet, 20 MG PO QHS Scheduled PRN Omeprazole (Omeprazole) 20 Mg Capsule.dr, 20 MG PO DAILY PRN for HEARTBURN Allergies Coded Allergies: No Known Allergies (Unverified , 05/15/19) A-FIB/CHADSVASC A-FIB History Current/History of A-Fib/PAF?: No Current PO Anticoag Therapy: No PRIYANK CROSS MD Jun 08, 2019 15:57
[2019-06-08] MEDS ORDERED: OMEPRAZOLE 20 MG CAP PO PRN (16:30)
[2019-06-08 17:05] VITALS: BP 128/68
[2019-06-08] MEDS: METHADONE 5 MG TAB (S0109) PO SCH ×2 (17:28→21:42)
[2019-06-08] MEDS: BUPRENORPHINE/NALOXONE 8-2MG SUBLINGUAL TABLET(SUBOXONE) SL SCH ×2 (17:28→22:23)
[2019-06-08] MEDS: NS 1,000 ML IV SCH (18:23)
[2019-06-08] MEDS: hydroCHLOROthiazide 12.5 MG CAPSULE PO SCH (21:41)
[2019-06-08] MEDS: SIMVASTATIN 20 MG TAB PO SCH (21:41)
[2019-06-08] MEDS: PIPERACILLIN/TAZOBACTAM SOD 3.375 GM in D5W MINI-BAG PLUS 50 ML IV SCH (21:42)
[2019-06-08] MEDS: lisinopriL 20 MG TAB PO SCH (21:42)
[2019-06-08 22:00] VITALS: BP 116/77
[2019-06-09] VITALS (9 sets, daily range): BP systolic 123–145; BP diastolic 70–89
[2019-06-09] MEDS: PIPERACILLIN/TAZOBACTAM SOD 3.375 GM in D5W MINI-BAG PLUS 50 ML IV SCH ×4 (03:44→22:16)
[2019-06-09] MEDS: NS 1,000 ML IV SCH ×3 (05:43→16:37)
[2019-06-09 06:20] LABS: HEMATOCRIT 26.6 % (42.0-52.0); MEAN CORPUSCULAR HEMOGLOBIN 26.9 pg (27.0-33.0); MEAN CORPUSCULAR HGB CONC 31.2 g/dl (32.0-36.5); MEAN CORPUSCULAR VOLUME 86.4 fl (80.0-96.0); RED BLOOD COUNT 3.08 10^6/uL (4.30-6.10); WHITE BLOOD COUNT 11.5 10^3/uL (4.0-10.0)
[2019-06-09 06:29] LABS: HEMOGLOBIN 8.3 g/dl (13.5-17.5); PLATELET COUNT, AUTOMATED 541 10^3/uL (150-450)
[2019-06-09 06:44] LABS: ALBUMIN 2.5 GM/DL (3.2-5.2); ALT/SGPT 67 U/L (12-78); BILIRUBIN,TOTAL 0.3 MG/DL (0.2-1.0); BLOOD UREA NITROGEN 11 MG/DL (7-18); CALCIUM LEVEL 8.9 MG/DL (8.5-10.1); CARBON DIOXIDE LEVEL 31 MEQ/L (21-32); CHLORIDE LEVEL 101 MEQ/L (98-107); CREATININE FOR GFR 0.75 MG/DL (0.70-1.30); GLOMERULAR FILTRATION RATE > 60.0 (>60); GLUCOSE, FASTING 86 MG/DL (70-100); SODIUM LEVEL 135 MEQ/L (136-145)
--- NOTE | 2019-06-09 08:18 | CR ---
DATE OF CONSULTATION: 06/09/2019 CHIEF COMPLAINT: Abdominal pain. HISTORY OF PRESENT ILLNESS: The patient is a 43-year-old male well-known to me. He had complications with acute cholecystitis a couple of months ago. Also under when attempted robotic cholecystectomy in the beginning of May, however, his gallbladder was too inflamed and too much scarring surrounding it to be able to successfully remove it without risk of injury to the common bile duct. Postoperatively he had drain left in place. I saw him in the office this past Sunday, the fluid was clear and the drain was removed. Apparently he called the office on Sunday and had some increasing pain in the right upper quadrant, felt like there was a bubble underneath the site where his drain was removed. He then said he would wait and see how he did over the weekend and call me today to be reevaluated however, over the weekend pain got significantly worse, he went into the emergency room, had a CT scan and labs done showing leukocytosis as well as a fluid collection underneath his liver and gallbladder fossa suspicious for an abscess. Overnight in the in the hospital, the skin site opened up and has been draining copious amounts of bile stained fluid. It is not purulent. He feels significantly improved already, no nausea or vomiting, no fevers or chills. PAST MEDICAL HISTORY: Opioid addiction. Hypertension. Attention deficit hyperactivity disorder (ADHD). PAST SURGICAL HISTORY: Cholecystostomy drain placements, lysis of adhesions with partial cholecystectomy. ALLERGIES: Please see med rec. MEDICATIONS: Please see med rec. REVIEW OF SYSTEMS: Pertinent positives and negatives as stated in the HPI. PHYSICAL EXAMINATION: GENERAL: Alert and oriented times three. No acute distress. VITALS: Temperature 98.2, pulse 65, respirations 18, blood pressure 123/70, pulse ox 99% on room air. HEENT: Pupils equally round and reactive to light and accommodation. HEART: S1-S2, regular rate and rhythm. LUNGS: Clear to auscultation bilaterally. ABDOMEN: Soft, tender to palpation in the right upper quadrant. The right-sided port incision is slightly open. It is draining a large amount of bile from it. EXTREMITIES: No clubbing, cyanosis or edema. LABORATORY DATA: White count 21.9 down to 11.5, hemoglobin 8.3, platelets 541, total bilirubin 0.3, alk phosphatase 330. IMAGING STUDIES: CT abdomen and pelvis yesterday shows a multiloculated abscess right upper quadrant associated with abscess/fistula to the skin surface, likely associated with complicated cholecystitis. The gallbladder itself cannot be definitively identified due to the surrounding inflammation. There was secondary inflammatory change involving the liver and adjacent hepatic flexure of the colon. ASSESSMENT/PLAN: The patient 43-year-old male, history of severe acute cholecystitis that he was septic from. He had a cholecystostomy drain placed at that time. It subsequently fell out prior to him being able to undergo surgery and could not be replaced due to the large stone inside of his gallbladder. After a few months when his pain subsided he was brought in for robotic cholecystectomy. However, intraoperatively we were unable to remove the gallbladder due to severe inflammation, but the large infected stone was removed at that time. He now has developed what appears to be biloma that is draining out through his right-sided port site. His white count has already improved overnight just by the fluid draining. His LFTs have also improved. I spoke with interventional radiology this morning about placing a drain in the subhepatic space of the gallbladder fossa to remove the remaining fluid. I have also spoken with Dr. Jorgensen from GI who is planning to evaluate him for possible ERCP and stent placement. All of his questions are answered. If this stent does not resolve his bile drainage then he may require a consultation at hepatobiliary surgery at [facility] for further evaluation.
--- NOTE | 2019-06-09 08:54 | IPNPDOC ---
Text Note Date of Service The patient was seen on 06/09/19. NOTE S: Patient seen and examined at bedside. No acute overnight events reported. No new medical complaints. O: General: NAD, lying comfortably in bed HEENT: NC/AT, EOMI Lungs: CTA B/L Heart: +S1S2, RRR Abd: soft, NT, +BS, bandages in place RUQ Ext: no edema A/P: 43 yo male, history of severe acute cholecystitis/sepsis, with cholecystostomy drain placed at that time, subsequently fell out prior to him being able to undergo surgery and could not be replaced due to the large stone inside of his gallbladder, subsequent robotic cholecystectomy was unsuccessful due to severe inflammation, but the large infected stone was removed at that time. Admitted for possible biloma that is draining out through his right-sided port site. #possible biloma/abscess - leukocytosis improving, transaminitis improved - continue IV fluids/Zosyn - IR c/s pending for placement of drainage catheter - GI c/s pending for possible ERCP/stent - surgical c/s appreciated - if no improvement may require a consultation at hepatobiliary surgery at [facility] for further evaluation. #HTN - continue home Rx with hold parameters #opioid addiction - continue home meds #HLD - continue statin therapy #DVT prophylaxis - mechanical VS,Fishbone, I+O VS, Fishbone, I+O Laboratory Tests 06/08/19 13:39 06/09/19 05:16 Vital Signs Date Time Temp Pulse Resp B/P (MAP) Pulse Ox O2 Delivery O2 Flow Rate FiO2 06/09/19 06:00 98.2 65 18 123/70 (87) 99 Room Air I&O- Last 24 Hours up to 6 AM 06/09/19 06:00 Intake Total 4130 ml Output Total 2275 ml Balance 1855 ml PRIYANK CROSS MD Jun 09, 2019 08:54
[2019-06-09] MEDS: BUPRENORPHINE/NALOXONE 8-2MG SUBLINGUAL TABLET(SUBOXONE) SL SCH ×4 (08:58→21:52)
[2019-06-09] MEDS: ADDERALL 5 MG TAB PO SCH ×2 (08:58→16:37)
[2019-06-09] MEDS: METHADONE 5 MG TAB (S0109) PO SCH ×4 (08:58→21:53)
[2019-06-09] MEDS ORDERED: LIDOCAINE 1% MDV 20ML VIAL As Ordered ONE (11:13)
--- NOTE | 2019-06-09 11:28 | REP ---
CT ABDOMEN WITHOUT CONTRAST: CT abdomen performed without IV contrast to re-evaluate fluid collection seen on the CT of 06/08/2019. The visualized lung bases show mild discoid atelectatic change. Persistent fluid collection is seen in the gallbladder fossa appearing similar to the prior exam. There are adjacent streaky inflammatory changes in the anterior abdominal wall. There are also adjacent inflammatory changes in the right upper quadrant. No other fluid collection is seen in the abdomen. Liver, spleen, adrenals, pancreas and kidneys are grossly unchanged. Electronically Signed by Mario Ibrahim MD 06/09/2019 02:46 P
[2019-06-09] MEDS ORDERED: ISOVUE-300 61% 50ML VIAL (Q9967) As Ordered ONE ×2 (13:40→15:08)
[2019-06-09] MEDS ORDERED: ROCURONIUM BROMIDE 50 MG/5 ML VIAL As Ordered ONE (13:50)
[2019-06-09] MEDS ORDERED: fentaNYL 100 MCG/2 ML INJECTION (J3010) As Ordered ONE (13:50)
[2019-06-09] MEDS ORDERED: LIDOCAINE 2% INJ 100 MG/5 ML SDV (FOR ANES.) As Ordered ONE (13:50)
[2019-06-09] MEDS ORDERED: propofoL 200 MG/20 ML VIAL As Ordered ONE ×2 (13:50→15:19)
[2019-06-09] MEDS ORDERED: MIDAZOLAM INJ 2 MG/2 ML VIAL (J2250) As Ordered ONE (13:51)
[2019-06-09] MEDS ORDERED: dexameTHASONE 4 MG/ML 1ML VIAL (J1100) As Ordered ONE (14:29)
[2019-06-09] MEDS ORDERED: GLYCOPYRROLATE INJ 0.2 MG/ML 2 ML VIAL As Ordered ONE (14:37)
[2019-06-09] MEDS ORDERED: ONDANSETRON 4MG/2ML VIAL (J2405) As Ordered ONE ×2 (14:37→15:57)
[2019-06-09] MEDS ORDERED: LABETALOL HCL 100 MG/20 ML VIAL As Ordered ONE (14:39)
[2019-06-09] MEDS ORDERED: ZOSYN 3.375 GM VIAL (J2543) As Ordered ONE (15:04)
--- NOTE | 2019-06-09 15:50 | ROOR ---
Patient Name: Holger Galeas Procedure Date: 06/09/2019 1:50 PM Date of : 1975 Age: 43 Room: Main OR Gender: Male Note Status: Finalized Procedure: ERCP Indications: Bile leak Patient Profile: (sp attempted cholecystectomy/necrotic GB. Post op Bile leak, GB is in place) Providers: Irving JORGENSEN MD Referring MD: 2. Inpatient 2. Inpatient Requesting Provider: Medicines: General Anesthesia Complications: No immediate complications. Procedure: Pre-Anesthesia Assessment: - The heart rate, respiratory rate, oxygen saturations, blood pressure, adequacy of pulmonary ventilation, and response to care were monitored throughout the procedure. The Duodenoscope was introduced through the mouth, and advanced to the duodenum and used to inject contrast into the bile duct and ventral pancreatic duct. The ERCP was accomplished without difficulty. The patient tolerated the procedure well. Findings: The major papilla was normal. A straight Roadrunner wire was passed into the biliary tree. The short-nosed traction sphincterotome was passed over the guidewire and the bile duct was then deeply cannulated. Contrast was injected. I personally interpreted the bile duct and pancreatic duct images. Ductal flow of contrast was adequate. Image quality was adequate. A wire was passed into the ventral pancreatic duct. An 8 mm biliary sphincterotomy was made with a traction (standard) sphincterotome using ERBE electrocautery. There was no post-sphincterotomy bleeding. The biliary tree was swept with a 9 mm balloon starting at the bifurcation. Nothing was found. One 10 mm by 4 cm covered metal stent was placed into the common bile duct. Bile flowed through the stent. The stent was in good position. One 4 Fr by 3 cm temporary stent with a full internal pigtail was placed into the ventral pancreatic duct. Clear fluid flowed through the stent. The stent was in good position. Impression: - The major papilla appeared normal. - A biliary sphincterotomy was performed. - The biliary tree was swept and nothing was found. - One covered metal stent was placed into the common bile duct. - One temporary stent was placed into the ventral pancreatic duct. Recommendation: - Observe patient's clinical course. ( await resolution of bile leak, resolution of abscess/phlegmon) - Return to endoscopist for stent removal at ERCP in 3-4 months. (after cholecystectomy) - Surgical consultation for consideration of cholecystectomy (date not yet determined). Irving Jorgensen MD Irving JORGENSEN MD 06/09/2019 3:50:00 PM Electronically signed by Irving JORGENSEN MD Number of Addenda: 0 Note Initiated On: 06/09/2019 1:50 PM Estimated Blood Loss: Estimated blood loss: none.
--- NOTE | 2019-06-09 16:01 | REP ---
C-ARM VIEWS DURING ERCP: Multiple C-arm views are performed during ERCP. Pigtail drainage catheter is seen in the right upper quadrant. Common bile duct is catheterized and contrast is injected. There appears to be leakage of contrast from the remnant of the cystic duct extending toward the pigtail drainage catheter. This is compatible with a biliary leak. There is not significant biliary dilatation. No definite stricture or filling defect is seen of the common bile duct. A stent is placed in the distal common bile duct traversing the ampulla of Vater. 3 minutes and 24 seconds of fluoroscopy time utilized. Electronically Signed by Mario Ibrahim MD 06/09/2019 04:18 P
[2019-06-09] MEDS ORDERED: oxyCODONE 5MG TAB PO PRN (16:15)
[2019-06-09] MEDS ORDERED: ONDANSETRON 4MG/2ML VIAL (J2405) IV PRN (16:15)
[2019-06-09] MEDS ORDERED: LR 1,000 ML IV SCH (16:15)
[2019-06-09] MEDS ORDERED: fentaNYL 100 MCG/2 ML INJECTION (J3010) IV PRN (16:15)
--- NOTE | 2019-06-09 16:51 | REP ---
ULTRASOUND-GUIDED BILOMA/ABSCESS DRAIN The procedure was performed under the direct supervision of Dr. Ibrahim. Patient has a history of A multiloculated rim enhancing fluid collection, consistent with abscess, extending from the gallbladder fossa to the infrahepatic right mid abdomen seen on a previous CT scan dated 06/08/2019. The risks and benefits of the procedure were explained to the patient and informed consent was obtained. The fluid collection was localized using ultrasound guidance. The skin was prepped and draped in a sterile fashion. 1% lidocaine was used as a local anesthetic. Using ultrasound guidance an 8-Syriac Skater APDL catheter was inserted using trocar technique. 80 ml of red/green colored fluid was withdrawn and sent to the lab for analysis. The catheter was affixed to the skin and a sterile dressing was applied. The catheter was connected to a gravity drainage bag. The patient tolerated the procedure well and there were no immediate complications. After the appropriate amount of monitored convalescence the patient was discharged from the department. Electronically Signed by AZALIA Guardado 06/09/2019 04:30 P Electronically Signed by Mario Ibrahim MD 06/09/2019 04:42 P
[2019-06-09] MEDS: SIMETHICONE 80 MG CHEW TAB PO PRN (21:52)
[2019-06-09] MEDS: SIMVASTATIN 20 MG TAB PO SCH (21:53)
[2019-06-09] MEDS: lisinopriL 20 MG TAB PO SCH (21:53)
[2019-06-09] MEDS: hydroCHLOROthiazide 12.5 MG CAPSULE PO SCH (21:53)
[2019-06-10] MEDS: NS 1,000 ML IV SCH (03:34)
[2019-06-10] MEDS: PIPERACILLIN/TAZOBACTAM SOD 3.375 GM in D5W MINI-BAG PLUS 50 ML IV SCH ×2 (04:22→10:06)
[2019-06-10 06:00] VITALS: BP 118/65
[2019-06-10] MEDS: SIMETHICONE 80 MG CHEW TAB PO PRN ×2 (07:53→14:18)
[2019-06-10] MEDS: METHADONE 5 MG TAB (S0109) PO SCH ×3 (07:53→21:25)
[2019-06-10] MEDS: BUPRENORPHINE/NALOXONE 8-2MG SUBLINGUAL TABLET(SUBOXONE) SL SCH ×3 (07:53→21:25)
[2019-06-10] MEDS: ADDERALL 5 MG TAB PO SCH ×2 (07:53→14:18)
--- NOTE | 2019-06-10 08:45 | IPNPDOC ---
Text Note Date of Service The patient was seen on 06/10/19. NOTE No acute events overnight. He is tolerating diet. Pain is much improved. He has the subhepatic drain in place, and he had an ERCP with stent yesterday. VSSAF NAD labs - pending A) 43y/o male with cystic duct leak s/p partial cholecystectomy and biloma POD#1 s/p drain placement and ERCP with stent P) reg diet laxatives check labs likely d/c home today and follow up with me in 2 weeks in the office. Alfredito Sanchez DO VS,Fishbone, I+O VS, Fishbone, I+O Vital Signs Date Time Temp Pulse Resp B/P (MAP) Pulse Ox O2 Delivery O2 Flow Rate FiO2 06/10/19 06:00 97.9 59 16 118/65 (82) 98 Room Air I&O- Last 24 Hours up to 6 AM 06/10/19 06:00 Intake Total 3550 ml Output Total 1995 ml Balance 1555 ml ELIECER SANCHEZ DO Jun 10, 2019 08:45
[2019-06-10 09:13] LABS: HEMOGLOBIN 9.5 g/dl (13.5-17.5); MEAN CORPUSCULAR HEMOGLOBIN 26.9 pg (27.0-33.0); MEAN CORPUSCULAR HGB CONC 30.6 g/dl (32.0-36.5); MEAN CORPUSCULAR VOLUME 87.8 fl (80.0-96.0); PLATELET COUNT, AUTOMATED 696 10^3/uL (150-450); RED BLOOD COUNT 3.53 10^6/uL (4.30-6.10); WHITE BLOOD COUNT 10.2 10^3/uL (4.0-10.0)
[2019-06-10 10:00] VITALS: BP 120/62
[2019-06-10] MEDS: MIRALAX *UNIT DOSE* 17GM PACKET PO SCH ×2 (10:06→21:24)
[2019-06-10] MEDS ORDERED: VANCOMYCIN HCL 1,000 MG, VIAL MATE ADAPTER 1 EACH in D5W 250 ML IV ONE (12:00)
--- NOTE | 2019-06-10 12:06 | PHACANCOPD ---
PHARMACY VANCOMYCIN DOSING Pt Demographics Demographics Patient Age:43 , Weight:81.500 , Gender: male Adjusted Body Weight Date: 06/10/19, Adjusted Body Weight: Kg Events Past 24 Hours Events Past 24 Hours: YES: Elevation in WBC Vancomycin Vancomycin Target Ranges: 10-20 mcg/ml Vancomycin Load Y/N: Yes Load Dose Date Time Vancomycin Load Dose: 1500MG Date: 06/09 Time: 1200 Vancomycin Dose Date: 06/10/19. Current Vancomycin Dose: [1250 MG IV Q8H] Intermittent Dosing?: No Labs Labs Item Value Date Time White Blood Count 21.9 10^3/uL H 06/08/19 1339 White Blood Count 11.5 10^3/uL H 06/09/19 0516 White Blood Count 10.2 10^3/uL H 06/10/19 0901 Micro Microbiology 06/09/19 Gram Stain - Final, Resulted 06/09/19 Abscess Culture, Resulted Pending 06/09/19 Anaerobic Culture, Received Pending 06/08/19 Gram Stain - Final, Complete 06/08/19 Wound Culture - Final, Complete Staph.aureus Methicillin Resis Creatinine Clearance Date:06/10/19. Creatinine Clearance: . Assessment and Plan Maintaining Current Dose?: Yes Reason for dose change: No Dose Change Pharmacist Note Pharmacist Note Date: 06/10/19. Pharmacist note: Pharmacy consulted for Vancomycin dosing for treatment of wound growing MRSA. There is no history of Vanco or MRSA here at [facility]. We'll load him with 1500 mg and follow with 1250 mg IV q8h. Pharmacy will continue to monitor and make adjustments as needed. [facility] Jun 10, 2019 12:06
[2019-06-10 14:00] VITALS: BP 134/81
[2019-06-10] MEDS: VANCOMYCIN HCL 500 MG in D5W MINI-BAG PLUS 100 ML IV SCH ×2 (14:18→21:26)
--- NOTE | 2019-06-10 14:26 | IPNPDOC ---
Subjective Date Seen The patient was seen on 06/10/19. Subjective Chief Complaint/HPI Holger is not reporting any abd pain. He has his GB drain in place and its actively draining Objective Physical Examination General Exam: Positive: Alert, Cooperative Eye Exam: Negative: Sclera icteric ENT Exam: Positive: Mucous membr. moist/pink Neck Exam: Positive: Supple Chest Exam: Positive: Clear to auscultation Abdomen Exam: Positive: Normal bowel sounds, Soft, Other (bile drain intact); Negative: Tenderness Extremity Exam: Negative: Edema Skin Exam: Negative: Rash Neuro Exam: Positive: Normal Speech Psych Exam: Positive: Mental status NL Assessment /Plan Assessment # MRSA Infected biloma - leukocytosis and transaminitis improved - discontinue IV fluids - discontinue Zosyn - IV vanco, pharm to dose - ID consult - s/p metal biliary stent for bile leak, and temporary pancreatic duct stent - s/p ULS guided drainage of abscess and biloma with placement of drain. Abscess fluid + GPC - home soon, based on ID recommendations # HTN - continue lisinopril + HCTZ # Opioid addiction - continue suboxone + methadone #HLD - continue zocor, since LFTs are improved Plan/VTE VTE Prophylaxis Ordered?: No VTE Exclusion Mechanical Proph: N/A:VTE Prophy Ordered VTE Exclusion Pharmacological: Other (s/p procedure ERCP and bile drain placement) VS, I&O, 24H, Fishbone Vital Signs/I&O Vital Signs Date Time Temp Pulse Resp B/P (MAP) Pulse Ox O2 Delivery O2 Flow Rate FiO2 06/10/19 06:00 97.9 59 16 118/65 (82) 98 Room Air I&O- Last 24 Hours up to 6 AM 06/10/19 06:00 Intake Total 3550 ml Output Total 1995 ml Balance 1555 ml Laboratory Data 24H LABS Laboratory Tests 2 06/10/19 09:01: Nucleated Red Blood Cells % (auto) 0.0 CBC/BMP Laboratory Tests 06/10/19 09:01 Microbiology Microbiology 06/09/19 Gram Stain - Final, Resulted 06/09/19 Abscess Culture, Resulted Pending 06/09/19 Anaerobic Culture, Received Pending 06/08/19 Gram Stain - Final, Complete 06/08/19 Wound Culture - Final, Complete Staph.aureus Methicillin Resis ESTRELLA RHOADES MD Jun 10, 2019 14:10
[2019-06-10 18:00] VITALS: BP 126/63
--- NOTE | 2019-06-10 20:29 | CR ---
DATE OF CONSULTATION: 06/10/2019 I was asked consult by hospitalist for evaluation of acute cholecystitis status post cholecystotomy tube complicated by an abdominal abscess. HISTORY OF PRESENT ILLNESS: Mr. Holger Galeas is a 43-year-old gentleman, patient of Dr. Sanchez, who was admitted initially on 03/19/2019 with acute cholecystitis was treated with a cholecystotomy tube and discharged home on antibiotic. On 04/02/2019, he was re-admitted with a question of a dislodged cholecystotomy tube, discharged on 04/06/[address] Sanchez had an attempt to do a robotic cholecystectomy in the beginning of May; however, his gallbladder was too inflamed and scarred and was not successful. Postoperatively, he had a drain placed. The fluid in the drain was clear postoperatively, but he developed worsening right upper quadrant pain with foul-smelling discharge in the drain and therefore he came in with much worsening pain and CT was suggestive of a fluid collection underneath his liver and gallbladder fossa consistent with an abscess. The patient had an elevated white count and was started on intravenous (IV) Zosyn. He had some nausea, but no fever or chills. PAST MEDICAL HISTORY: Significant for: 1. Attention deficit disorder. 2. Weight loss of over 100 pounds in the past couple years. 3. History of opioid addiction. 4. History of herniated disc. 5. Chronic pain, for which he takes a Suboxone and methadone. 6. Hypertension. PAST SURGICAL HISTORY: 1. Cholecystotomy tube in March 2019. 2. Attempt at robotic surgery, cholecystectomy in May 2019, which failed. 3. Lysis of adhesions. 4. History of laminectomy for herniated disc. REVIEW OF SYSTEMS: He has no nausea, vomiting or diarrhea. Currently, he has some right upper quadrant pain. No fever or chills. He has chronic back pain. ALLERGIES: No known drug allergies. MEDICATIONS: - Zosyn 2.25 grams IV every 6 hours from 06/08/2019 to 06/10/2019 - vancomycin 1.25 grams IV every 8 hours started on 06/09 - MiraLax 1 packet by mouth twice a day - Mylicon as needed - Adderall 20 mg by mouth twice a day - Zocor 20 mg by mouth at bedtime - lisinopril 20 mg by mouth at bedtime - hydrochlorothiazide 12.5 mg by mouth at bedtime - omeprazole 20 mg as needed - Suboxone 1 tablet sublingual three times a day - methadone 5 mg by mouth three times a day LABORATORY DATA: White count was 21.9 on admission, today it is 10.2, hemoglobin 9.5, hematocrit 31, platelets 696. Sodium 135, potassium 4, chloride 101, bicarb 31, BUN 11, creatinine 0.75, glucose 86, calcium 8.9. Bilirubin 0.2, AST 27 down from 86, ALT 67 down from 113, alkaline phosphatase 330 down from 567, albumin 2.5, amylase 32, lipase 48. TSH 1.11. Wound culture from 06/08/2019 was positive for methicillin-resistant Staphylococcus aureus (MRSA). On 06/09/2019, he had drainage of the abscess done interventional radiology and gram stain had many gram-positive cocci in clusters. IMAGING STUDIES: Abdominal CT on 06/09/2019 shows persistent fluid collection in the gallbladder fossa appearing similar to prior exam, streaky inflammatory changes in the abdominal wall. Liver, spleen, adrenals, pancreas and kidneys are normal. The patient had 80 mL of red-green colored fluid withdrawn from the multiloculated rim-enhancing fluid collection, extending from the gallbladder fossa to the infrahepatic right mid abdomen seen on CT. This was done by L[facility] with Dr. Ibrahim as supervising provider. The patient also underwent an endoscopic retrograde cholangiopancreatography (ERCP) in the operating room on 06/09/2019. A stent was placed in the distal common bile duct. He had sphincterotomy and he had a ventral pancreatic duct placed that will need to be removed in 3-4 months. PHYSICAL EXAMINATION: Pleasant healthy looking gentleman in no acute distress. Oxygen saturation 100% on room air. HEART: Normal S1-S2. No murmurs, rubs or gallops. LUNGS: Clear. No wheezes or rhonchi. ABDOMEN: Soft, mildly tender in the right upper quadrant. There is a drain with yellowish-brownish thick mucus. BACK: No costovertebral angle (CVA) or lumbosacral tenderness. EXTREMITIES: No clubbing, cyanosis or edema. No calf tenderness. OROPHARYNX: Poor dentition, NECK: Supple. No jugular venous distention (JVD). No bruits. IMPRESSION: This is a 43-year-old gentleman with acute cholecystitis in March 2019. Complicated, could not undergo cholecystectomy due to adhesions and infection. The patient had an intra-abdominal abscess and a cystic duct leak status post partial cholecystectomy and biloma. Cultures are positive for MRSA from admission as well as from drainage done yesterday, which is consistent with Staphylococcus as well. PLAN: Continue with IV vancomycin. If the patient clinically improved, could switch him to oral. Bactrim for discharge. I am not sure if his other cultures will grow any anaerobes. If the patient gets discharged tomorrow, he could go home on oral Bactrim until final cultures available. Thank you for this consultation. JEFF
[2019-06-10] MEDS: hydroCHLOROthiazide 12.5 MG CAPSULE PO SCH (21:25)
[2019-06-10] MEDS: SIMVASTATIN 20 MG TAB PO SCH (21:25)
[2019-06-10 21:26] VITALS: BP 132/80
[2019-06-10] MEDS: lisinopriL 20 MG TAB PO SCH (21:26)
[2019-06-10 22:00] VITALS: BP 130/78
[2019-06-10] MEDS: VANCOMYCIN HCL 750 MG, VIAL MATE ADAPTER 1 EACH in D5W 250 ML IV SCH (23:40)
[2019-06-11 02:00] VITALS: BP 125/76
[2019-06-11] MEDS: VANCOMYCIN HCL 500 MG in D5W MINI-BAG PLUS 100 ML IV SCH (04:57)
[2019-06-11 06:00] VITALS: BP 127/82
[2019-06-11] MEDS: VANCOMYCIN HCL 750 MG, VIAL MATE ADAPTER 1 EACH in D5W 250 ML IV SCH (06:09)
[2019-06-11 06:13] LABS: BASO % 0.3 % (0.0-1.0); EOS # 0.2 10^3/uL (0.0-0.5); EOS % 1.9 % (0.0-3.0); HEMATOCRIT 31.3 % (42.0-52.0); HEMOGLOBIN 9.6 g/dl (13.5-17.5); LYMPH # 1.8 10^3/uL (1.5-5.0); LYMPH % 19.8 % (24.0-44.0); MEAN CORPUSCULAR HEMOGLOBIN 26.7 pg (27.0-33.0); MEAN CORPUSCULAR HGB CONC 30.7 g/dl (32.0-36.5); MEAN CORPUSCULAR VOLUME 87.2 fl (80.0-96.0); MONO # 0.6 10^3/uL (0.0-0.8); MONO % 6.1 % (0.0-5.0); NEUTROPHILS # 6.6 10^3/uL (1.5-8.5); NEUTROPHILS % 71.4 % (36.0-66.0); PLATELET COUNT, AUTOMATED 604 10^3/uL (150-450); RED BLOOD COUNT 3.59 10^6/uL (4.30-6.10); WHITE BLOOD COUNT 9.3 10^3/uL (4.0-10.0)
[2019-06-11 06:43] LABS: ALBUMIN 2.7 GM/DL (3.2-5.2); ALT/SGPT 51 U/L (12-78); BILIRUBIN,TOTAL 0.4 MG/DL (0.2-1.0); BLOOD UREA NITROGEN 7 MG/DL (7-18); CALCIUM LEVEL 9.4 MG/DL (8.5-10.1); CARBON DIOXIDE LEVEL 31 MEQ/L (21-32); CHLORIDE LEVEL 99 MEQ/L (98-107); CREATININE FOR GFR 0.73 MG/DL (0.70-1.30); GLOMERULAR FILTRATION RATE > 60.0 (>60); GLUCOSE, FASTING 87 MG/DL (70-100); POTASSIUM SERUM 4.2 MEQ/L (3.5-5.1); SODIUM LEVEL 138 MEQ/L (136-145)
[2019-06-11] MEDS: MIRALAX *UNIT DOSE* 17GM PACKET PO SCH (09:32)
[2019-06-11] MEDS: METHADONE 5 MG TAB (S0109) PO SCH (09:32)
[2019-06-11] MEDS: ADDERALL 5 MG TAB PO SCH (09:32)
[2019-06-11] MEDS: BUPRENORPHINE/NALOXONE 8-2MG SUBLINGUAL TABLET(SUBOXONE) SL SCH (09:32)
[2019-06-11 10:00] VITALS: BP 125/70
--- NOTE | 2019-06-11 10:00 | IPNPDOC ---
Subjective Date Seen The patient was seen on 06/11/19. Subjective Chief Complaint/HPI Feels fine. afebrile. Objective Physical Examination General Exam: Positive: Alert, Cooperative Eye Exam: Negative: Sclera icteric ENT Exam: Positive: Mucous membr. moist/pink Neck Exam: Positive: Supple Chest Exam: Positive: Clear to auscultation Abdomen Exam: Positive: Normal bowel sounds, Soft, Other (bile drain intact); Negative: Tenderness Extremity Exam: Negative: Edema Skin Exam: Negative: Rash Neuro Exam: Positive: Normal Speech Psych Exam: Positive: Mental status NL Assessment /Plan Assessment # MRSA Infected biloma - leukocytosis and transaminitis have mostly resolved - tolerating vanco - d/w / Myesha bactrim x 10 days - s/p metal biliary stent for bile leak, and temporary pancreatic duct stent - s/p ULS guided drainage of abscess and biloma with placement of drain. - home today - anaerobic cx no growth per microbiology chemistry laboratory technician - f/u with Dr. Sanchez in 2 weeks # HTN - continue lisinopril + HCTZ # Opioid addiction - continue suboxone + methadone #HLD - continue zocor, since LFTs are improved Plan/VTE VTE Prophylaxis Ordered?: No VTE Exclusion Mechanical Proph: N/A:VTE Prophy Ordered VTE Exclusion Pharmacological: Other (s/p procedure ERCP and bile drain placement) VS, I&O, 24H, Fishbone Vital Signs/I&O Vital Signs Date Time Temp Pulse Resp B/P (MAP) Pulse Ox O2 Delivery O2 Flow Rate FiO2 06/11/19 06:00 97.8 65 18 127/82 (97) 100 Room Air I&O- Last 24 Hours up to 6 AM 06/11/19 06:00 Intake Total 3035 ml Output Total 220 ml Balance 2815 ml Laboratory Data 24H LABS Laboratory Tests 2 06/11/19 05:26: Immature Granulocyte % (Auto) 0.5, Neutrophils (%) (Auto) 71.4H, Lymphocytes (%) (Auto) 19.8L, Monocytes (%) (Auto) 6.1H, Eosinophils (%) (Auto) 1.9, Basophils (%) (Auto) 0.3, Neutrophils # (Auto) 6.6, Lymphocytes # (Auto) 1.8, Monocytes # (Auto) 0.6, Eosinophils # (Auto) 0.2, Basophils # (Auto) 0.0, Nucleated Red Blood Cells % (auto) 0.0, Anion Gap 8, Glomerular Filtration Rate > 60.0, Calcium Level 9.4, Total Bilirubin 0.4, Aspartate Amino Transf (AST/SGOT) 26, Alanine Aminotransferase (ALT/SGPT) 51, Alkaline Phosphatase 281H, Total Protein 7.0, Albumin 2.7L, Albumin/Globulin Ratio 0.63L CBC/BMP Laboratory Tests 06/11/19 05:26 Microbiology Microbiology 06/09/19 Gram Stain - Final, Complete 06/09/19 Abscess Culture - Final, Complete Staph.aureus Methicillin Resis 06/09/19 Anaerobic Culture, Received Pending 06/08/19 Gram Stain - Final, Complete 06/08/19 Wound Culture - Final, Complete Staph.aureus Methicillin Resis ESTRELLA RHOADES MD Jun 11, 2019 10:00
[2019-06-11] MEDS ORDERED: BACT800T5 PO (10:02)
--- NOTE | 2019-06-15 20:35 | DSES ---
DATE OF ADMISSION: 06/08/2019 DATE OF DISCHARGE: 06/11/2019 DISCHARGE DIAGNOSES: 1. Methicillin-resistant Staphylococcus aureus (MRSA) infected intra-abdominal abscess. 2. Status post endoscopic retrograde cholangiopancreatography (ERCP) with biliary sphincterotomy and placement of metal stent to the common bile duct (CBD) and temporary stent to the ventral pancreatic duct. 3. Ultrasound-guided placement of a Umer-Ivory (LACI) drain and aspiration of intra-abdominal abscess. 4. Hypertension. 5. Opioid addiction. 6. Hyperlipidemia. 7. Acute abdominal pain secondary to infected MRSA biloma. CONSULTANTS ON THE CASE: 1. Dr. Brunner of infectious disease. 2. Dr. Sanchez of general surgery. 3. Dr. Jorgensen of gastroenterology (GI). 4. Dr. Ibrahim of interventional radiology. PROCEDURES PERFORMED DURING THIS HOSPITALIZATION: 1. Ultrasound-guided placement of LACI drain and aspiration of 80 mL of infected biloma. 2. ERCP with sphincterotomy and stent placement times two. Please see operative report notes. DISPOSITION: Patient is discharged home in stable condition. CONDITION ON DISCHARGE: Improved from admission. DISCHARGE INSTRUCTIONS: Patient is instructed to follow up with his primary care provider (PCP) in approximately one week, with Dr. Sanchez in two weeks and with Dr. Jorgensen in 3-4 months for stents removal following his cholecystectomy. Patient is also advised to take Bactrim one table DS twice a day for the next 10 days. RELEVANT LABS ARE THE FOLLOWING: Wound culture done in the emergency room (ER) department was positive for MRSA. Wound culture from ultrasound-guided drainage of biloma was also positive for MRSA. Anaerobic cultures grew no organisms to date. White blood cell count is 9.3, hemoglobin 9.6, hematocrit 31.3, platelet counts are 604,000. Sodium 138, potassium 4.2, chloride 99, bicarbonate 33, BUN 7, creatinine 0.73, calcium 9.4. AST is 26, ALT is 51, alkaline phosphatase is 281, lipase is 48. IMAGING STUDIES DONE DURING THIS HOSPITALIZATION: 1. CT of the abdomen and pelvis. This showed multiloculated abscess in the right upper quadrant, as detailed above and in the body of the report, secondary inflammatory changes involving the liver and adjacent hepatic flexure of the colon noted. Please reference full report for details. 2. CT of the abdomen and pelvis showed mild discoid atelectatic change. Persistent fluid collection is seen in the gallbladder fossa. Findings similar to prior exam. There are adjacent streaky inflammatory changes in the interior abdominal wall. There are also adjacent inflammatory changes in the right upper quadrant. No other fluid collection is seen in the abdomen. Liver, spleen, adrenal, pancreas and kidneys are grossly unchanged. DISCHARGE MEDICATIONS: - Suboxone 1 tablet sublingual three times a day - Adderall 5 mg tablets, the patient is advised to take 20 mg twice a day - lisinopril/hydrochlorothiazide (HCTZ) 20/12..5 one tablet at bedtime - methadone 5 mg three times a day - omeprazole 20 mg daily as needed for heartburn - simvastatin 20 mg at bedtime - Bactrim DS 1 tablet twice a day for 10 days HOSPITAL COURSE: Mr. Galeas is a 43-year-old gentleman who had undergone a robotic lysis of adhesions involving his right upper quadrant with partial cholecystectomy on 05/23/2019. He had a subsequent drain placed and followed up with Dr. Sanchez as an outpatient, had the drain removed. Following that, this patient developed acute abdominal pain over the weekend, was admitted to the abdominal service. Repeat CT scan showed loculated right upper quadrant rim enhancing abscess. He was admitted to the hospitalist service. He was treated with IV Zosyn. The CAT scan also indicated possible biloma. GI was consulted. The patient was seen by Dr. Jorgensen. He was scheduled for ERCP, which he tolerated without complications. A stent was placed in the CBD as well as in the ventral pancreatic duct. Postprocedure, patient did well, with decreased values in his transaminase levels back to normal. Cultures obtained initially from his wound culture where his previous drain had been, as well as following an ultrasound-guided drainage of his biloma, both with MRSA. Dr. Brunner was consulted, recommended vancomycin and transitioning to Bactrim at discharge. During the patient's hospital stay, Dr. Sanchez was also following along, although there was no need for operative management at this time. Patient is afebrile this morning and there is improvement in his leukocytosis back to normal, as well as essentially normalizing of his transaminase levels. Thus, he will be discharged home in stable condition. Total of 30 minutes spent completing all discharge paperwork.
== END 2019-06-11 11:45 | disposition home or self-care (01) | DRG 252 ==
LOC: M ED 12:52 → EEVIPCON 15:45 → M ED INP 15:45 → ENRESERVTM 15:58 → ENRESERVDT 15:58 → M MSPAV 17:18
PROVIDERS: ADMIT Internal Medicine; ATTEND Internal Medicine
PROC: 0F7D8ZZ Dilation of Pancreatic Duct, Via Natural or Artificial Opening Endoscopic (ICD-10-PCS; 2019-06-09)
PROC: 0W9G30Z Drainage of Peritoneal Cavity with Drainage Device, Percutaneous Approach (ICD-10-PCS; 2019-06-09)
PROC: 0F798DZ Dilation of Common Bile Duct with Intraluminal Device, Via Natural or Artificial Opening Endoscopic (ICD-10-PCS; principal; 2019-06-09 13:00)
DX: K91.89 Other postprocedural complications and disorders of digestive system (principal); I10 Essential (primary) hypertension; F11.20 Opioid dependence, uncomplicated; K65.1 Peritoneal abscess; F90.9 Attention-deficit hyperactivity disorder, unspecified type; Z79.899 Other long term (current) drug therapy; E78.5 Hyperlipidemia, unspecified; K83.09 Other cholangitis; B95.62 Methicillin resistant Staphylococcus aureus infection as the cause of diseases classified elsewhere; G89.29 Other chronic pain

== ENCOUNTER → 2019-10-04 | Outpatient (CLI) | payer OTHER ==
[~2019-10-04] MED LIST changes: -AMLO10TA5 PO; +AMLO1TAB24 PO; +AMLO1TAB25 PO; -AMLO5TAB6 PO; +BACT800T5 PO; -HYDR-2807 PO; +HYDR-4433 PO; -LISI20TA19 PO; +LISI20TA35 PO; +OMEP-218 PO
== END ==
LOC: M LABSMTC 09:24
PROVIDERS: ATTEND Anesthesiology
DX: Z01.818 Encounter for other preprocedural examination (principal); Z11.59 Encounter for screening for other viral diseases
CPT/HCPCS: C9803; U0003

== ENCOUNTER → 2019-10-09 | Day surgery (SDC) | payer OTHER ==
[~2019-10-09] VITALS: Ht 182.9 cm; Wt 85.3 kg
[~2019-10-09] MED LIST changes: +LIDOCAINE 2% 100MG/5ML SDV (FOR ANES.) As Ordered ONE; +NS 1,000 ML IV ONE; +fentaNYL 100 MCG/2 ML INJECTION (J3010) As Ordered ONE; +propofoL 200 MG/20 ML VIAL As Ordered ONE
--- NOTE | 2019-10-09 11:45 | ROOR ---
Patient Name: Holger Galeas Procedure Date: 10/09/2019 11:18 AM Date of : 1975 Age: 44 Room: [facility] Gender: Male Note Status: Finalized Procedure: Upper GI endoscopy Indications: Biliary stent removal, Pancreatic stent removal (ERCP 06/06/19 for post cholecystectomy bile leak) Providers: Irving JORGENSEN MD Referring MD: JORGE MCDERMOTT MD Requesting Provider: Medicines: Monitored Anesthesia Care Complications: No immediate complications. Procedure: Pre-Anesthesia Assessment: - The heart rate, respiratory rate, oxygen saturations, blood pressure, adequacy of pulmonary ventilation, and response to care were monitored throughout the procedure. The Endoscope was introduced through the mouth, and advanced to the third part of duodenum. The upper GI endoscopy was accomplished without difficulty. The patient tolerated the procedure well. Findings: The examined esophagus was normal. The entire examined stomach was normal. A previously placed metal biliary stent was seen in the area of the papilla. Stent removal was accomplished with a rat-toothed forceps. (The plastic stent placed into pancreatic duct at time of ERCP is not seen. A single small mucosal nodule was found in the area of the papilla. Biopsies were taken with a cold forceps for histology. Impression: - Normal esophagus. - Normal stomach. - Metal biliary stent in the area of the papilla protruding from the bile duct is present. This was removed. - Mucosal nodule/granulation tissue found at the papilla after stent was removed was biopsied. Recommendation: - Observe patient's clinical course. - I anticipate no further need for intervention. Irving Jorgensen MD Irving JORGENSEN MD 10/09/2019 11:45:14 AM Electronically signed by Irving JORGENSEN MD Number of Addenda: 0 Note Initiated On: 10/09/2019 11:18 AM Estimated Blood Loss: Estimated blood loss: none.
[2019-10-09 11:57] VITALS: BP 140/82
== END | disposition home or self-care (01) ==
LOC: M OPP 10:35
PROVIDERS: ATTEND Internal Medicine Gastroenterology
DX: Z46.59 Encounter for fitting and adjustment of other gastrointestinal appliance and device (principal); K21.9 Gastro-esophageal reflux disease without esophagitis; I10 Essential (primary) hypertension; E78.5 Hyperlipidemia, unspecified; Z79.899 Other long term (current) drug therapy; F90.9 Attention-deficit hyperactivity disorder, unspecified type; F17.220 Nicotine dependence, chewing tobacco, uncomplicated; Z79.891 Long term (current) use of opiate analgesic
CPT/HCPCS: 43239; 43247; 88307; J3010

== ENCOUNTER 2022-01-30 20:04 | Inpatient (IN) | payer OTHER, MEDICARE ==
[~2022-01-30] VITALS: Ht 182.9 cm; Wt 82.6 kg
[~2022-01-30 20:04] MED LIST changes: -LIDOCAINE 2% 100MG/5ML SDV (FOR ANES.) As Ordered ONE; -LISI-538 PO; +LISI10TA22 PO; -LISI10TA4 PO; +LISI20TA33 PO; -NS 1,000 ML IV ONE; +OMEP-173 PO; -OMEP-218 PO; -fentaNYL 100 MCG/2 ML INJECTION (J3010) As Ordered ONE; -propofoL 200 MG/20 ML VIAL As Ordered ONE
[2022-01-30] MEDS ORDERED: ACETAMINOPHEN 325 MG TAB PO ONE (21:00)
[2022-01-30] MEDS ORDERED: ALBUTEROL 90 MCG/ACT 8GM HFA INHALER INH ONE (23:05)
[2022-01-30 23:38] LABS: BASO # 0.1 10^3/uL (0.0-0.2); BASO % 0.2 % (0.0-1.0); HEMATOCRIT 35.5 % (42.0-52.0); HEMOGLOBIN 11.9 g/dl (13.5-17.5); LYMPH # 1.2 10^3/uL (1.5-5.0); LYMPH % 4.5 % (24.0-44.0); MEAN CORPUSCULAR HEMOGLOBIN 29.5 pg (27.0-33.0); MEAN CORPUSCULAR HGB CONC 33.5 g/dl (32.0-36.5); MEAN CORPUSCULAR VOLUME 88.1 fl (80.0-96.0); MONO % 6.7 % (2.0-8.0); NEUTROPHILS # 23.2 10^3/uL (1.5-8.5); NEUTROPHILS % 87.9 % (36.0-66.0); PLATELET COUNT, AUTOMATED 311 10^3/uL (150-450); RED BLOOD COUNT 4.03 10^6/uL (4.30-6.10); WHITE BLOOD COUNT 26.4 10^3/uL (4.0-10.0)
[2022-01-30 23:54] LABS: MONO # 1.8 10^3/uL (0.0-0.8)
[2022-01-31 00:11] LABS: ALBUMIN 3.5 GM/DL (3.2-5.2); ALT/SGPT 82 U/L (12-78); BILIRUBIN,TOTAL 0.7 MG/DL (0.2-1.0); BLOOD UREA NITROGEN 15 MG/DL (7-18); CALCIUM LEVEL 8.8 MG/DL (8.5-10.1); CARBON DIOXIDE LEVEL 27 MEQ/L (21-32); CHLORIDE LEVEL 96 MEQ/L (98-107); CREATININE FOR GFR 0.86 MG/DL (0.70-1.30); GLOMERULAR FILTRATION RATE > 60.0 (>60); GLUCOSE, FASTING 118 MG/DL (70-100); POTASSIUM SERUM 3.3 MEQ/L (3.5-5.1); SODIUM LEVEL 134 MEQ/L (136-145); TOTAL PROTEIN 7.3 GM/DL (6.4-8.2)
[2022-01-31] MEDS ORDERED: ISOVUE-370 76% 100ML VIAL As Ordered ONE (00:22)
[2022-01-31] MEDS: ALBUTEROL 90 MCG/ACT 8GM HFA INHALER INH SCH ×4 (02:00→20:00)
[2022-01-31] MEDS ORDERED: PIPERACILLIN/TAZOBACTAM SOD 3.375 GM in D5W MINI-BAG PLUS 50 ML IV ONE (02:10)
[2022-01-31] MEDS ORDERED: VANCOMYCIN HCL 1,750 MG in NS 250 ML IV ONE (02:10)
[2022-01-31] MEDS ORDERED: KETOROLAC 30 MG/ML 1ML VIAL IV ONE (02:40)
[2022-01-31] MEDS ORDERED: HOME MED LIST COMPLETE! XX SCH (02:50)
[2022-01-31] MEDS ORDERED: VANCOMYCIN HCL 750 MG, VIAL MATE ADAPTER 1 EACH in D5W 250 ML IV ONE (03:00)
[2022-01-31] MEDS ORDERED: VANCOMYCIN HCL 1,000 MG, VIAL MATE ADAPTER 1 EACH in D5W 250 ML IV ONE (03:00)
[2022-01-31 03:13] LABS: CK-MB VALUE MASS 1.7 NG/ML (<3.6); MB/CK RELATIVE INDEX 0.71 (< OR =4)
[2022-01-31] MEDS ORDERED: VANCOMYCIN HCL 1,240 MG in IV FLUID PLACE HOLDER 1 EA IV SCH (03:25)
[2022-01-31 04:22] LABS: NT-PRO BNP 140 PG/ML (<125)
[2022-01-31 04:50] VITALS: BP 140/82
[2022-01-31] MEDS ORDERED: REMDESIVIR 200 MG in NS 250 ML IV ONE (06:00)
[2022-01-31 07:35] LABS: BASO % 0.1 % (0.0-1.0); EOS # 0.1 10^3/uL (0.0-0.5); EOS % 0.3 % (0.0-3.0); HEMATOCRIT 33.6 % (42.0-52.0); HEMOGLOBIN 11.2 g/dl (13.5-17.5); LYMPH # 1.1 10^3/uL (1.5-5.0); LYMPH % 6.5 % (24.0-44.0); MEAN CORPUSCULAR HEMOGLOBIN 29.6 pg (27.0-33.0); MEAN CORPUSCULAR HGB CONC 33.3 g/dl (32.0-36.5); MEAN CORPUSCULAR VOLUME 88.7 fl (80.0-96.0); MONO # 1.3 10^3/uL (0.0-0.8); MONO % 7.9 % (2.0-8.0); NEUTROPHILS # 14.3 10^3/uL (1.5-8.5); NEUTROPHILS % 84.5 % (36.0-66.0); PLATELET COUNT, AUTOMATED 246 10^3/uL (150-450); RED BLOOD COUNT 3.79 10^6/uL (4.30-6.10); WHITE BLOOD COUNT 16.9 10^3/uL (4.0-10.0)
[2022-01-31] MEDS ORDERED: PIPERACILLIN/TAZOBACTAM SOD 4.5 GM in D5W MINI-BAG PLUS 50 ML IV SCH ×4 (08:00)
[2022-01-31] MEDS ORDERED: SODIUM CHLORIDE 0.9% INJ 10 ML SYR IV ONE (08:00)
[2022-01-31 08:01] VITALS: O2SAT 94
[2022-01-31 08:18] LABS: ALT/SGPT 67 U/L (12-78); BILIRUBIN,DIRECT 0.4 MG/DL (0.0-0.2); BILIRUBIN,TOTAL 0.9 MG/DL (0.2-1.0); BLOOD UREA NITROGEN 12 MG/DL (7-18); CALCIUM LEVEL 8.8 MG/DL (8.5-10.1); CARBON DIOXIDE LEVEL 28 MEQ/L (21-32); CHLORIDE LEVEL 97 MEQ/L (98-107); CREATININE FOR GFR 0.82 MG/DL (0.70-1.30); FERRITIN 590 NG/ML (26-388); GLOMERULAR FILTRATION RATE > 60.0 (>60); GLUCOSE, FASTING 92 MG/DL (70-100); LDH LACTATE DEHYDROGENASE 204 U/L (87-241); MAGNESIUM LEVEL 2.6 MG/DL (1.8-2.4); POTASSIUM SERUM 2.9 MEQ/L (3.5-5.1); SODIUM LEVEL 132 MEQ/L (136-145); TOTAL PROTEIN 6.5 GM/DL (6.4-8.2)
[2022-01-31 08:32] LABS: D-DIMER QUANT 3253.31 ng/ml (<500)
[2022-01-31] MEDS: POTASSIUM CHLORIDE 10MEQ SR TABLET PO SCH (09:21)
[2022-01-31] MEDS: ENOXAPARIN 40MG/0.4ML SYRINGE (J1650 PER 10MG) SC SCH (09:22)
[2022-01-31] MEDS: DOXYCYCLINE HYCLATE 100MG TABLET PO SCH ×2 (11:00→21:53)
[2022-01-31] MEDS: KCL 10MEQ/100ML SWI (KRUN) 10 MEQ in IV 1 EA IV SCH ×4 (11:01→15:32)
[2022-01-31] MEDS ORDERED: VANCOMYCIN HCL 1,000 MG, VIAL MATE ADAPTER 1 EACH in D5W 250 ML IV SCH (12:00)
[2022-01-31 12:01] VITALS: O2SAT 96
[2022-01-31] MEDS: ACETAMINOPHEN TAB 650MG DOSE (2X325MG) PO PRN ×2 (12:34→22:00)
[2022-01-31 14:31] VITALS: BP 160/40
[2022-01-31] MEDS ORDERED: cefTRIAXone SOD 2 GM in D5W MINI-BAG PLUS 50 ML IV SCH (15:00)
[2022-01-31] MEDS: MUPIROCIN 2% OINT 22 GM TUBE TOP SCH ×2 (15:37→21:00)
[2022-01-31 20:30] VITALS: BP 142/84
[2022-02-01] MEDS: ALBUTEROL 90 MCG/ACT 8GM HFA INHALER INH SCH ×2 (03:08→08:52)
[2022-02-01 06:00] VITALS: BP 146/82
[2022-02-01] MEDS ORDERED: REMDESIVIR 100 MG in NS 250 ML IV SCH (06:00)
[2022-02-01] MEDS: ACETAMINOPHEN TAB 650MG DOSE (2X325MG) PO PRN (06:12)
[2022-02-01 06:18] LABS: BASO % 0.2 % (0.0-1.0); EOS # 0.1 10^3/uL (0.0-0.5); EOS % 0.7 % (0.0-3.0); LYMPH # 1.1 10^3/uL (1.5-5.0); LYMPH % 9.8 % (24.0-44.0); MEAN CORPUSCULAR HEMOGLOBIN 29.4 pg (27.0-33.0); MEAN CORPUSCULAR HGB CONC 33.3 g/dl (32.0-36.5); MEAN CORPUSCULAR VOLUME 88.2 fl (80.0-96.0); MONO # 0.9 10^3/uL (0.0-0.8); MONO % 7.8 % (2.0-8.0); NEUTROPHILS # 8.9 10^3/uL (1.5-8.5); NEUTROPHILS % 80.7 % (36.0-66.0); PLATELET COUNT, AUTOMATED 328 10^3/uL (150-450); RED BLOOD COUNT 4.08 10^6/uL (4.30-6.10)
[2022-02-01 06:49] LABS: ALT/SGPT 71 U/L (7.0-40); BILIRUBIN,DIRECT 0.1 MG/DL (<0.4); BILIRUBIN,TOTAL 0.3 MG/DL (0.3-1.2); BLOOD UREA NITROGEN 12 MG/DL (9-23); CARBON DIOXIDE LEVEL 26 MMOL/L (20-31); CHLORIDE LEVEL 102 MMOL/L (98-107); CREATININE FOR GFR 0.64 MG/DL (0.70-1.30); GLOMERULAR FILTRATION RATE > 60.0 (>60); GLUCOSE, FASTING 97 MG/DL (60-100); PHOSPHORUS LEVEL 3.8 MG/DL (2.5-4.9); POTASSIUM SERUM 3.7 MMOL/L (3.5-5.1); SODIUM LEVEL 142 MMOL/L (136-145); TOTAL PROTEIN 6.3 G/DL
[2022-02-01] MEDS ORDERED: SODIUM CHLORIDE 0.9% INJ 10 ML SYR IV SCH (07:00)
[2022-02-01 08:00] VITALS: O2SAT 95
[2022-02-01] MEDS: ENOXAPARIN 40MG/0.4ML SYRINGE (J1650 PER 10MG) SC SCH (08:00)
[2022-02-01] MEDS: POTASSIUM CHLORIDE 10MEQ SR TABLET PO SCH (08:00)
[2022-02-01] MEDS: MUPIROCIN 2% OINT 22 GM TUBE TOP SCH (08:01)
[2022-02-01] MEDS: DOXYCYCLINE HYCLATE 100MG TABLET PO SCH (08:01)
[2022-02-01] MEDS ORDERED: LEVO1TAB40 PO (08:56)
[2022-02-01] MEDS ORDERED: MUPI2OI TOP (08:58)
[2022-02-01] MEDS ORDERED: INFLUENZA QUADRIVALENT PF VACCINE 0.5ML SYRINGE IM.IMMUN ONE (09:00)
[2022-02-01] MEDS ORDERED: VENTAER INH (09:39)
== END 2022-02-01 11:19 | disposition home or self-care (01) | DRG 137 ==
LOC: M ED 20:04 → M ED INP 01-31 03:19 → ENRESERV 01-31 04:18 → M MSPAV 01-31 04:37
PROVIDERS: ADMIT Family Medicine; ATTEND Internal Medicine
DX: U07.1 COVID-19 (principal); J12.82 Pneumonia due to coronavirus disease 2019; E87.1 Hypo-osmolality and hyponatremia; I10 Essential (primary) hypertension; E87.6 Hypokalemia; I25.10 Atherosclerotic heart disease of native coronary artery without angina pectoris

== ENCOUNTER → 2022-02-20 | Outpatient (CLI) | payer OTHER, MEDICARE ==
[~2022-02-20] MED LIST changes: +LEVO1TAB40 PO; +MUPI2OI TOP; +VENTAER INH
[2022-02-20 12:10] LABS: HEMATOCRIT 43.9 % (42.0-52.0); HEMOGLOBIN 13.6 g/dl (13.5-17.5); MEAN CORPUSCULAR HEMOGLOBIN 29.7 pg (27.0-33.0); MEAN CORPUSCULAR VOLUME 95.9 fl (80.0-96.0); PLATELET COUNT, AUTOMATED 263 10^3/uL (150-450); RED BLOOD COUNT 4.58 10^6/uL (4.30-6.10); WHITE BLOOD COUNT 5.5 10^3/uL (4.0-10.0)
[2022-02-20 13:13] LABS: ALKALINE PHOSPHATASE 83 U/L (46-116); ALT/SGPT 23 U/L (7.0-40); AST/SGOT 18 U/L (<34); BILIRUBIN,TOTAL 0.3 MG/DL (0.3-1.2); BLOOD UREA NITROGEN 23 MG/DL (9-23); CALCIUM LEVEL 9.2 MG/DL (8.5-10.1); CARBON DIOXIDE LEVEL 30 MMOL/L (20-31); CHLORIDE LEVEL 101 MMOL/L (98-107); CHOLESTEROL LEVEL 148 MG/DL (<200); CHOLESTEROL RISK RATIO 2.37 (<5); CREATININE FOR GFR 0.84 MG/DL (0.70-1.30); GLOMERULAR FILTRATION RATE > 60.0 (>60); GLUCOSE, FASTING 99 MG/DL (60-100); HDL CHOLESTEROL 62.2 MG/DL (>40); LDL CHOLESTEROL 71.2 MG/DL (<100); NON-HDL-C 86 MG/DL; POTASSIUM SERUM 4.7 MMOL/L (3.5-5.1); SODIUM LEVEL 138 MMOL/L (136-145); TOTAL PROTEIN 7.1 G/DL (5.7-8.2); TRIGLYCERIDES LEVEL 73 MG/DL (<150)
[2022-02-20 13:14] LABS: THYROID STIMULATING HORMONE 1.196 uIU/ML (0.55-4.78)
== END ==
LOC: M RAD 11:09
PROVIDERS: ATTEND Family Medicine
DX: D64.9 Anemia, unspecified (principal); J44.0 Chronic obstructive pulmonary disease with (acute) lower respiratory infection; J18.9 Pneumonia, unspecified organism; J90 Pleural effusion, not elsewhere classified

== ENCOUNTER → 2024-03-28 | Outpatient (CLI) | payer MEDICARE ==
[~2024-03-28] MED LIST changes: +ONDA-282 PO; -ONDA4TAB6 PO; +SENN-165 PO; -SENN18TA PO
[2024-03-28 12:00] LABS: HEMATOCRIT 43.6 % (42.0-52.0); HEMOGLOBIN 14.7 g/dl (13.5-17.5); MEAN CORPUSCULAR HEMOGLOBIN 29.5 pg (27.0-33.0); MEAN CORPUSCULAR HGB CONC 33.7 g/dl (32.0-36.5); MEAN CORPUSCULAR VOLUME 87.4 fl (80.0-96.0); PLATELET COUNT, AUTOMATED 343 10^3/uL (150-450); RED BLOOD COUNT 4.99 10^6/uL (4.30-6.10); WHITE BLOOD COUNT 9.8 10^3/uL (4.0-10.0)
[2024-03-28 12:17] LABS: HEMOGLOBIN A1c 5.2 % (4.0-6.0)
[2024-03-28 12:28] LABS: ALBUMIN 4.3 G/DL (3.2-5.2); ALKALINE PHOSPHATASE 100 U/L (40-129); ALT/SGPT 16 U/L (7.0-40); AST/SGOT 16 U/L (<34); BILIRUBIN,TOTAL 0.5 MG/DL (0.3-1.2); BLOOD UREA NITROGEN 12 MG/DL (9-23); CALCIUM LEVEL 9.5 MG/DL (8.5-10.1); CARBON DIOXIDE LEVEL 32 MMOL/L (20-31); CHLORIDE LEVEL 101 MMOL/L (98-107); CHOLESTEROL LEVEL 171 MG/DL (<200); CHOLESTEROL RISK RATIO 3.32 (<5); CREATININE FOR GFR 0.75 MG/DL (0.70-1.30); GLOMERULAR FILTRATION RATE > 60.0 (>56); GLUCOSE, FASTING 89 MG/DL (60-100); HDL CHOLESTEROL 51.5 MG/DL (>40); LDL CHOLESTEROL 92.5 MG/DL (<100); NON-HDL-C 119.5 MG/DL; POTASSIUM SERUM 4.1 MMOL/L (3.5-5.1); PROSTATIC SPECIFIC AG MONITOR 1.38 NG/ML (< 4.00); SODIUM LEVEL 141 MMOL/L (136-145); TRIGLYCERIDES LEVEL 135 MG/DL (<150)
[2024-03-28 12:29] LABS: THYROID STIMULATING HORMONE 0.924 uIU/ML (0.55-4.78)
[2024-03-28 12:30] LABS: TESTOSTERONE 355 NG/DL (241-827)
== END ==
LOC: M RAD 09:30
PROVIDERS: ATTEND Family Medicine
DX: D64.9 Anemia, unspecified (principal); R53.83 Other fatigue; E03.9 Hypothyroidism, unspecified; M47.896 Other spondylosis, lumbar region; R00.1 Bradycardia, unspecified; Z79.899 Other long term (current) drug therapy

== ENCOUNTER → 2024-06-17 | Outpatient (CLI) | payer MEDICARE ==
[2024-06-17 10:51] LABS: HEMATOCRIT 40.5 % (42.0-52.0); HEMOGLOBIN 13.4 g/dl (13.5-17.5); MEAN CORPUSCULAR HGB CONC 33.1 g/dl (32.0-36.5); MEAN CORPUSCULAR VOLUME 90.6 fl (80.0-96.0); PLATELET COUNT, AUTOMATED 304 10^3/uL (150-450); RED BLOOD COUNT 4.47 10^6/uL (4.30-6.10); WHITE BLOOD COUNT 8.3 10^3/uL (4.0-10.0)
[2024-06-17 11:15] LABS: HEMOGLOBIN A1c 4.9 % (4.0-6.0)
[2024-06-17 11:16] LABS: ALKALINE PHOSPHATASE 81 U/L (40-129); ALT/SGPT 17 U/L (7.0-40); AST/SGOT 15 U/L (<34); BILIRUBIN,TOTAL 0.3 MG/DL (0.3-1.2); BLOOD UREA NITROGEN 14 MG/DL (9-23); CALCIUM LEVEL 9.3 MG/DL (8.5-10.1); CARBON DIOXIDE LEVEL 29 MMOL/L (20-31); CHLORIDE LEVEL 106 MMOL/L (98-107); CHOLESTEROL LEVEL 156 MG/DL (<200); CHOLESTEROL RISK RATIO 3.57 (<5); CREATININE FOR GFR 0.78 MG/DL (0.70-1.30); GLOMERULAR FILTRATION RATE > 60.0 (>56); GLUCOSE, FASTING 96 MG/DL (60-100); HDL CHOLESTEROL 43.6 MG/DL (>40); LDL CHOLESTEROL 96.8 MG/DL (<100); NON-HDL-C 112.4 MG/DL; POTASSIUM SERUM 4.6 MMOL/L (3.5-5.1); SODIUM LEVEL 141 MMOL/L (136-145); TOTAL PROTEIN 7.2 G/DL (5.7-8.2); TRIGLYCERIDES LEVEL 78 MG/DL (<150)
[2024-06-17 11:18] LABS: TESTOSTERONE 206 NG/DL (241-827); THYROID STIMULATING HORMONE 1.014 uIU/ML (0.55-4.78)
== END ==
LOC: M LAB 10:24
PROVIDERS: ATTEND Family Medicine
DX: R53.83 Other fatigue (principal)

== ENCOUNTER → 2024-11-04 | Outpatient (CLI) | payer MEDICARE | LOC: M RAD 14:25 | PROVIDERS: ATTEND Student in an Organized Health Care Education/Training Program | DX: Z53.9 Procedure and treatment not carried out, unspecified reason (principal) ==

== ENCOUNTER → 2024-11-04 | Outpatient (CLI) | payer MEDICARE ==
[~2024-11-04] MED LIST changes: +ISOVUE-370 76% 100 ML VIAL As Ordered ONE
[2024-11-04 15:58] LABS: BASO # 0.0 10^3/uL (0.0-0.2); BASO % 0.3 % (0.0-1.0); EOS # 0.1 10^3/uL (0.0-0.5); EOS % 0.7 % (0.0-3.0); LYMPH # 1.5 10^3/uL (1.5-5.0); LYMPH % 15.4 % (24.0-44.0); MONO # 0.7 10^3/uL (0.0-0.8); MONO % 7.2 % (2.0-8.0); NEUTROPHILS # 7.3 10^3/uL (1.5-8.5); NEUTROPHILS % 76.2 % (36.0-66.0); PLATELET COUNT, AUTOMATED 301 10^3/uL (150-450)
[2024-11-04 16:22] LABS: CHOLESTEROL LEVEL 154.0 MG/DL (<200); CHOLESTEROL RISK RATIO 3.53 (<5); LDL CHOLESTEROL 91.8 MG/DL (<100); NON-HDL-C 110.4 MG/DL; TRIGLYCERIDES LEVEL 93.0 MG/DL (<150)
== END ==
LOC: M RAD 15:24
PROVIDERS: ATTEND Student in an Organized Health Care Education/Training Program
DX: Z00.00 Encounter for general adult medical examination without abnormal findings (principal); R10.11 Right upper quadrant pain; I10 Essential (primary) hypertension
CPT/HCPCS: 36415; 74170; 80061; 83690; 85025; Q9967

== ENCOUNTER 2024-11-08 11:59 | Emergency (ER) | payer MEDICARE ==
[~2024-11-08] VITALS: Ht 180.3 cm; Wt 90.5 kg
[~2024-11-08 11:59] MED LIST changes: -ISOVUE-370 76% 100 ML VIAL As Ordered ONE
[2024-11-08 12:01] VITALS: TEMP 96.9
[2024-11-08] MEDS ORDERED: IRBE150T27 (12:08)
[2024-11-08] MEDS ORDERED: AMLO1TAB24 (12:08)
[2024-11-08] MEDS ORDERED: OMEP-173 (12:08)
[2024-11-08 13:07] LABS: BASO # 0.0 10^3/uL (0.0-0.2); BASO % 0.4 % (0.0-1.0); EOS # 0.2 10^3/uL (0.0-0.5); EOS % 2.0 % (0.0-3.0); LYMPH # 1.4 10^3/uL (1.5-5.0); LYMPH % 17.0 % (24.0-44.0); MONO # 0.5 10^3/uL (0.0-0.8); MONO % 5.8 % (2.0-8.0); NEUTROPHILS # 6.3 10^3/uL (1.5-8.5); NEUTROPHILS % 74.4 % (36.0-66.0); PLATELET COUNT, AUTOMATED 323 10^3/uL (150-450)
[2024-11-08 13:32] LABS: ALT/SGPT 13 U/L (7.0-40); AST/SGOT 17 U/L (<34); CALCIUM LEVEL 9.4 MG/DL (8.5-10.1); CARBON DIOXIDE LEVEL 28 MMOL/L (20-31); CHLORIDE LEVEL 103 MMOL/L (98-107); CREATININE FOR GFR 0.76 MG/DL (0.70-1.30); GLOMERULAR FILTRATION RATE > 90.0 (>56); POTASSIUM SERUM 4.4 MMOL/L (3.5-5.1); SODIUM LEVEL 143 MMOL/L (136-145)
[2024-11-08 15:01] VITALS: O2SAT 99
[2024-11-08 15:10] VITALS: BP 138/64
== END 2024-11-08 17:10 | disposition home or self-care (01) ==
LOC: M ED 11:59
DX: R10.11 Right upper quadrant pain (principal); I10 Essential (primary) hypertension; E78.5 Hyperlipidemia, unspecified; K21.9 Gastro-esophageal reflux disease without esophagitis; Z87.01 Personal history of pneumonia (recurrent)

== ENCOUNTER → 2024-11-10 | Outpatient (CLI) | payer MEDICARE ==
[~2024-11-10] MED LIST changes: +AMLO1TAB24; +IRBE150T27; +OMEP-173
[2024-11-10 13:59] LABS: IRON (FE) 43.0 UG/DL (65-175); PSA SCREENING 1.08 NG/ML (< 4.00)
== END ==
LOC: M PLALAB 11:37
PROVIDERS: ATTEND Student in an Organized Health Care Education/Training Program
DX: Z00.00 Encounter for general adult medical examination without abnormal findings (principal); D64.9 Anemia, unspecified; Z12.5 Encounter for screening for malignant neoplasm of prostate
CPT/HCPCS: 36415; 81257; 82728; 83540; G0103